=== PATIENT | male | born 1975 | race American Indian/Alaskan Native ===

== ENCOUNTER 2017-03-01 10:41 | Inpatient (IN) | payer SELFPAY ==
[2017-03-01 11:41] LABS: Basophils % (Auto) 0.4 % (0.0-1.8); Eosinophils % (Auto) 0.3 % (0.0-4.3); Hematocrit 43.4 % (35.5-45.6); Hemoglobin 14.4 gm/dl (11.8-15.2); Mean Corpuscular HGB Conc 33 % (32-34); Mean Corpuscular Hemoglobin 30 pg (28-32); Mean Corpuscular Volume 90 fl (84-94); Platelet Count 305 K/mm3 (140-440); Red Blood Count 4.85 M/mm3 (3.65-5.03); White Blood Count 12.8 K/mm3 (4.5-11.0)
[2017-03-01 12:03] LABS: Anion Gap 18 mmol/L; BUN/Creatinine Ratio 8.88; Blood Urea Nitrogen 8 mg/dL (9-20); Calcium 9.2 mg/dL (8.4-10.2); Carbon Dioxide 29 mmol/L (22-30); Chloride 96.7 mmol/L (98-107); Glucose 85 mg/dL (75-100); Potassium 4.3 mmol/L (3.6-5.0); Sodium 139 mmol/L (137-145)
--- NOTE | 2017-03-01 12:05 | XRay Report ---
Chest 2 views: History: Chest pain. Findings: Normal cardiomediastinal silhouette. Trachea is midline. Consolidation right middle lobe. Normal CP angles. Impression: Consolidation right middle lobe.
[2017-03-01] MEDS ORDERED: ROCEPHIN/NS 1 GM/50 ML 1 GM/50 ML BAG IV ONE (20:58)
[2017-03-01] MEDS ORDERED: ZITHROMAX 500 MG in NACL 0.9% 250ML 250 ML IV ONE (21:00)
[2017-03-01] MEDS ORDERED: NACL 0.9% 1000 ML 1,000 ML IV ONE (21:02)
--- NOTE | 2017-03-01 21:04 | Emergency Department Report ---
ED Chest Pain HPI - General Chief Complaint: Chest Pain Stated Complaint: CHEST PAIN/SOB Time Seen by Provider: 03/01/17 20:57 Source: patient Mode of arrival: Ambulatory Limitations: No Limitations - History of Present Illness Initial Comments: 42 year old male with a past medical history of schizophrenia presents to the hospital with complaints of right-sided chest pain 4 days. Pain is constant, sharp, worse with deep inspiration and movement to the right side. Positive cough productive of yellow sputum. No documented fever but positive sweats and chills. Positive dyspnea on exertion. No calf tenderness or edema, recent travel, sick contacts, or hemoptysis. Severity scale (0 -10): 9 - Related Data Home Medications Medication Instructions Recorded Confirmed Last Taken Citalopram Hydrobromide [Celexa] 40 mg PO DAILY 11/12/13 02/04/16 Unknown hydrOXYzine PAMOATE (NF) [Vistaril] 100 mg PO DAILY 11/12/13 02/04/16 Unknown Previous Rx's Medication Instructions Recorded Last Taken Type Ibuprofen [Motrin] 600 mg PO Q8H PRN #60 tablet 06/04/15 Unknown Rx methOCARBAMOL [Robaxin TAB] 500 mg PO BID #10 tab 06/04/15 Unknown Rx traMADol [Ultram] 50 mg PO Q6HR PRN #14 tablet 06/04/15 Unknown Rx Allergies Allergy/AdvReac Type Severity Reaction Status Date / Time No Known Allergies Allergy Unverified 03/01/17 11:00 Heart Score - HEART Score History: Slightly suspicious EKG: Normal Age: < 45 Risk factors: No known risk factors Troponin: < normal limit HEART Score: 0 ED Review of Systems ROS: Stated complaint: CHEST PAIN/SOB Other details as noted in HPI Comment: All other systems reviewed and negative Other: Constitutional: As per HPI Eyes: No eye pain visual changes or discharge ENT: No ear pain or throat pain Neck: Denies pain Respiratory: As per HPI GI: Denies abdominal pain, nausea, vomiting, diarrhea : Denies dysuria, urinary frequency, or urgency Musculoskeletal: Denies back pain Skin: Denies rash, lesions, erythema Neurologic: Denies headache, numbness, weakness Psychiatric: Denies suicidal ideation, hallucinations ED Past Medical Hx - Past Medical History Previous Medical History?: Yes Hx Psychiatric Treatment: Yes ([place] - outpatient) Additional medical history: depression, schizophrenic - Surgical History Past Surgical History?: Yes Additional Surgical History: Right foot surgery - Social History Smoking Status: Never Smoker Substance Use Type: None - Medications Home Medications: Home Medications Medication Instructions Recorded Confirmed Last Taken Type Citalopram Hydrobromide [Celexa] 40 mg PO DAILY 11/12/13 02/04/16 Unknown History hydrOXYzine PAMOATE (NF) [Vistaril] 100 mg PO DAILY 11/12/13 02/04/16 Unknown History Ibuprofen [Motrin] 600 mg PO Q8H PRN #60 tablet 06/04/15 02/04/16 Unknown Rx methOCARBAMOL [Robaxin TAB] 500 mg PO BID #10 tab 06/04/15 02/04/16 Unknown Rx traMADol [Ultram] 50 mg PO Q6HR PRN #14 tablet 06/04/15 02/04/16 Unknown Rx ED Physical Exam - General Limitations: No Limitations - Other Other exam information: General: No limitations, patient is alert in no acute distress Head exam: Atraumatic, normocephalic Eyes exam: Normal appearance, pupils equal reactive to light, extraocular movements intact ENT: Moist mucous membrane, normal oropharynx Neck exam: Normal inspection, full range of motion, no meningismus nontender Respiratory exam: Clear to auscultation bilateral, no wheezes, rales, crackles Cardiovascular: Normal rate and rhythm, tachycardia noted with sitting up in the bed. Right chest wall nontender Abdomen: Soft, nondistended, and nontender, with normal bowel sounds, no rebound, or guarding Extremity: Full range of motion normal inspection no deformity, no calf tenderness or edema Back: Normal Inspection, full range of motion, no tenderness Neurologic: Alert, oriented x3, cranial nerves intact, no motor or sensory deficit Psychiatric: normal affect, normal mood Skin: Warm, dry, intact ED Course Vital Signs 03/01/17 03/01/17 03/01/17 10:55 17:56 18:00 Temperature 99.2 F Pulse Rate 93 H 87 Respiratory 16 14 Rate Blood Pressure 103/66 110/78 Blood Pressure [Right] O2 Sat by Pulse 98 91 Oximetry 03/01/17 03/01/17 03/01/17 18:11 18:18 18:21 Temperature 98.4 F Pulse Rate 79 88 71 Respiratory 24 18 18 Rate Blood Pressure 110/70 115/71 Blood Pressure 122/74 [Right] O2 Sat by Pulse 99 95 100 Oximetry 03/01/17 03/01/17 03/01/17 18:30 18:41 18:51 Temperature Pulse Rate 64 82 85 Respiratory 20 28 H 30 H Rate Blood Pressure 99/57 99/57 104/58 Blood Pressure [Right] O2 Sat by Pulse 100 100 100 Oximetry 03/01/17 03/01/17 03/01/17 19:00 19:11 19:21 Temperature Pulse Rate 76 82 78 Respiratory 27 H 27 H 28 H Rate Blood Pressure 102/56 102/56 130/77 Blood Pressure [Right] O2 Sat by Pulse 99 100 100 Oximetry 03/01/17 03/01/17 03/01/17 19:30 19:41 19:51 Temperature Pulse Rate 80 77 78 Respiratory 28 H 26 H 12 Rate Blood Pressure 109/69 109/69 92/54 Blood Pressure [Right] O2 Sat by Pulse 97 100 99 Oximetry 03/01/17 03/01/17 03/01/17 20:00 20:11 20:21 Temperature Pulse Rate 86 85 97 H Respiratory 33 H 21 21 Rate Blood Pressure 93/60 118/75 Blood Pressure [Right] O2 Sat by Pulse 100 100 99 Oximetry 03/01/17 03/01/17 03/01/17 20:30 20:41 20:43 Temperature Pulse Rate 92 H 93 H 89 Respiratory 32 H 30 H 30 H Rate Blood Pressure 92/52 92/52 92/52 Blood Pressure [Right] O2 Sat by Pulse 98 98 100 Oximetry 03/01/17 03/01/17 03/01/17 20:45 20:47 20:49 Temperature Pulse Rate 89 90 95 H Respiratory 24 23 29 H Rate Blood Pressure 91/54 91/54 91/54 Blood Pressure [Right] O2 Sat by Pulse 99 100 98 Oximetry 03/01/17 20:51 Temperature Pulse Rate 96 H Respiratory 31 H Rate Blood Pressure 91/54 Blood Pressure [Right] O2 Sat by Pulse 98 Oximetry - Reevaluation(s) Reevaluation #1: 03/01/17 21:06 Patient has right middle lobe pneumonia on chest x-ray. Venous pH, blood cultures, urine, urine culture, UDS, and lactic acid added. Rocephin and azithromycin ordered Normal saline Toradol for pain ED Medical Decision Making - Lab Data Result diagrams: 03/01/17 11:21 07/06/17 11:21 Lab Results 03/01/17 03/01/17 03/01/17 Range/Units 11:21 11:21 13:53 WBC 12.8 H (4.5-11.0) K/mm3 RBC 4.85 (3.65-5.03) M/mm3 Hgb 14.4 (11.8-15.2) gm/dl Hct 43.4 (35.5-45.6) % MCV 90 (84-94) fl MCH 30 (28-32) pg MCHC 33 (32-34) % RDW 13.0 L (13.2-15.2) % Plt Count 305 (140-440) K/mm3 Lymph % (Auto) 12.8 L (13.4-35.0) % [place] % (Auto) 13.3 H (0.0-7.3) % Eos % (Auto) 0.3 (0.0-4.3) % Baso % (Auto) 0.4 (0.0-1.8) % Lymph # 1.6 (1.2-5.4) K/mm3 [place] # 1.7 H (0.0-0.8) K/mm3 Eos # 0.0 (0.0-0.4) K/mm3 Baso # 0.0 (0.0-0.1) K/mm3 Seg Neutrophils % 73.2 H (40.0-70.0) % Seg Neutrophils # 9.3 H (1.8-7.7) K/mm3 Sodium 139 (137-145) mmol/L Potassium 4.3 (3.6-5.0) mmol/L Chloride 96.7 L (98-107) mmol/L Carbon Dioxide 29 (22-30) mmol/L Anion Gap 18 mmol/L BUN 8 L (9-20) mg/dL Creatinine 0.9 (0.8-1.5) mg/dL Estimated GFR > 60 ml/min BUN/Creatinine Ratio 8.88 % Glucose 85 (75-100) mg/dL Calcium 9.2 (8.4-10.2) mg/dL Troponin T < 0.010 < 0.010 (0.00-0.029) ng/mL 03/01/17 Range/Units 16:47 WBC (4.5-11.0) K/mm3 RBC (3.65-5.03) M/mm3 Hgb (11.8-15.2) gm/dl Hct (35.5-45.6) % MCV (84-94) fl MCH (28-32) pg MCHC (32-34) % RDW (13.2-15.2) % Plt Count (140-440) K/mm3 Lymph % (Auto) (13.4-35.0) % [place] % (Auto) (0.0-7.3) % Eos % (Auto) (0.0-4.3) % Baso % (Auto) (0.0-1.8) % Lymph # (1.2-5.4) K/mm3 [place] # (0.0-0.8) K/mm3 Eos # (0.0-0.4) K/mm3 Baso # (0.0-0.1) K/mm3 Seg Neutrophils % (40.0-70.0) % Seg Neutrophils # (1.8-7.7) K/mm3 Sodium (137-145) mmol/L Potassium (3.6-5.0) mmol/L Chloride (98-107) mmol/L Carbon Dioxide (22-30) mmol/L Anion Gap mmol/L BUN (9-20) mg/dL Creatinine (0.8-1.5) mg/dL Estimated GFR ml/min BUN/Creatinine Ratio % Glucose (75-100) mg/dL Calcium (8.4-10.2) mg/dL Troponin T < 0.010 (0.00-0.029) ng/mL - EKG Data -: EKG Interpreted by Me (sinus rhythm rate 85 LVH early repo) - EKG Data When compared to previous EKG there are: previous EKG unavailable - Radiology Data Radiology results: report reviewed (chest x-ray: Right middle lobe infiltrate) - Medical Decision Making Plan to the patient to the hospital for treatment of pneumonia. Vital signs as documented show intermittent tachypnea. Patient also has tachycardia with postural changes. Patient also having borderline hypotension different requires admission for pneumonia treatment. - Differential Diagnosis pneumonia, PE, bronchitis, pleurisy, costochondritis, atypical chest pain Critical Care Time: No Critical care attestation.: If time is entered above; I have spent that time in minutes in the direct care of this critically ill patient, excluding procedure time. ED Disposition Clinical Impression: Right middle lobe pneumonia Disposition: [id number] OP ADMIT IP TO THIS HOSP Is pt being admited?: Yes Condition: Stable Time of Disposition: 21:03
[2017-03-01] MEDS ORDERED: TORADOL IV ONE (21:06)
[2017-03-01 21:08] LABS: Urine Drugs of Abuse Note Disclamer
[2017-03-01 21:48] LABS: Bilirubin,Urine NEG (Negative); Blood,Urine NEG (Negative); Ketones,Urine 20 mg/dL (Negative); Leukocyte Esterase,Urine NEG (Negative); Mucus,Urine 2+ /HPF; Nitrite,Urine NEG (Negative); WBC,Urine < 1.0 /HPF (0.0-6.0)
[2017-03-01] MEDS ORDERED: ZOFRAN IV PRN (22:41)
[2017-03-01] MEDS ORDERED: MILK OF MAGNESIA PO PRN (22:41)
[2017-03-01] MEDS ORDERED: PROVENTIL IH PRN (22:41)
[2017-03-01] MEDS ORDERED: DULCOLAX PR PRN (22:41)
--- NOTE | 2017-03-01 22:45 | History and Physical Report ---
History of Present Illness Date of examination: 03/01/17 History of present illness: 42-year-old man with a history of schizophrenia, depression comes emergency room with complaints of chest pain in the right chest which started on Sunday which she described as a hurting pain, worse with cough. Cough is productive of yellow phlegm, admits to fever and chills, shortness of breath Patient denies chest pain, palpitation, abdominal pain, hematochezia, dysuria, frequency, focal weakness, dysarthria, fever chills, polydipsia polyuria, hot or cold intolerance, easy bruisability, or rash or bleeding from mucosal membrane, rhinorrhea, epistaxis, earache, tinnitus, blurry vision, eye discharge , anxiety, depression. Other review of systems negative PAST SURGICAL HISTORY: Right foot surgery SOCIAL HISTORY: Admits to alcohol, tobacco, cocaine, marijuana use FAMILY HISTORY: Hypertension Medications and Allergies Allergies Allergy/AdvReac Type Severity Reaction Status Date / Time No Known Allergies Allergy Unverified 03/01/17 11:00 Exam - Physical Exam Narrative exam: Gen. appearance: Patient lying in bed, no apparent distress HEENT: Normocephalic, atraumatic, pupils equally round and reactive to light, extraocular movement intact, and no sclericterus,. No JVD or thyromegaly or nodule,neck supple, no carotid bruit ,mucous membranes moist, no exudate or erythema Heart: S1, S2, regular rate and rhythm Lungs: Right lung crackle, breathing comfortable Abdomen: Positive bowel sounds, nontender, nondistended, no organomegaly Extremity: No edema, cyanosis, clubbing Skin: No rash, nodules, warm, dry Neuro: Oriented 3, cranial nerves II-12 intact, speech is fluent, motor and sensory intact - Constitutional Vitals: Temp Pulse Resp BP Pulse Ox 98.4 F 86 22 108/58 100 03/01/17 18:18 03/01/17 22:05 03/01/17 22:05 03/01/17 22:05 03/01/17 22:05 Results - Labs CBC & Chem 7: 03/01/17 11:21 03/01/17 11:21 Labs: Abnormal lab results 03/01/17 03/01/17 03/01/17 Range/Units 11:21 11:21 21:13 WBC 12.8 H (4.5-11.0) K/mm3 RDW 13.0 L (13.2-15.2) % Lymph % (Auto) 12.8 L (13.4-35.0) % [place] % (Auto) 13.3 H (0.0-7.3) % [place] # 1.7 H (0.0-0.8) K/mm3 Seg Neutrophils % 73.2 H (40.0-70.0) % Seg Neutrophils # 9.3 H (1.8-7.7) K/mm3 Chloride 96.7 L (98-107) mmol/L BUN 8 L (9-20) mg/dL Lactic Acid 3.50 H* (0.7-2.0) mmol/L - Imaging and Cardiology EKG: image reviewed Chest x-ray: image reviewed Assessment and Plan Sepsis Community acquired pneumonia Substance abuse Schizophrenia Depression Admit to medicine Start IV antibiotic, follow blood culture, sputum culture Start dvt prophalaxis, continue outpatient medications
[2017-03-02 07:40] LABS: Basophils % (Auto) 0.3 % (0.0-1.8); Eosinophils % (Auto) 0.4 % (0.0-4.3); Hematocrit 40.1 % (35.5-45.6); Hemoglobin 13.1 gm/dl (11.8-15.2); Mean Corpuscular HGB Conc 33 % (32-34); Mean Corpuscular Hemoglobin 29 pg (28-32); Mean Corpuscular Volume 90 fl (84-94); Platelet Count 290 K/mm3 (140-440); Red Blood Count 4.45 M/mm3 (3.65-5.03); Red Cell Distribution Width 12.9 % (13.2-15.2); White Blood Count 9.7 K/mm3 (4.5-11.0)
[2017-03-02 07:57] LABS: Anion Gap 18 mmol/L; Blood Urea Nitrogen 10 mg/dL (9-20); Calcium 8.8 mg/dL (8.4-10.2); Carbon Dioxide 26 mmol/L (22-30); Chloride 101.7 mmol/L (98-107); Glucose 99 mg/dL (75-100); Potassium 4.3 mmol/L (3.6-5.0); Sodium 141 mmol/L (137-145)
--- NOTE | 2017-03-02 07:58 | Admit Criteria Form ---
Admission Criteria Documentation: GENERAL ADMISSION CRITERIA (Place 'X' for any and all applicable criteria): Admission is indicated for ANY ONE of the following: [ X]I. Hemodynamic instability as indicated by ANY ONE of the following(1)(2 )(3)(4)(5): [X ]a) Vital sign abnormality not readily corrected by appropriate treatment within 12 to 24 hours indicated by ANY ONE of the following: [X ]i) Hypotension [ ]ii) Symptomatic Tachycardia unresponsive to treatment (eg , analgesia, fluids, sedation as indicated) [ ]iii) Orthostatic vital sign changes unresponsive to treatment (eg, fluids) [ X]b) Vital sign abnormality that is severe indicated by ANY ONE of the following: [ X]i) Inadequate perfusion indicated by ANY ONE of the following: [ X]1) Lactic acidosis (greater than 2 mmol/L) [ ]2) New abnormal capillary refill (greater than 3 seconds) [ ]3) Other metabolic acidosis (arterial pH less than 7.35) not otherwise explained [ ]4) Reduced urine output [ ]5) Altered mental status [ ]6) Myocardial Ischemia [ ]v) Mean arterial pressure[A] less than 60 mm Hg [ ]vi) Mean arterial pressure[A] less than 70 mm Hg after 30 minutes of appropriate treatment (eg, fluid resuscitation) [ ]vii) IV inotropic or vasopressor medication required to maintain adequate blood pressure or perfusion [ ]viii) Sustained heart rate greater than 120 beats per minute in adult or child 6 years or older[B]] [ ]II. Hypertension requiring inpatient treatment as indicated by ANY ONE of the following(6)(7)(8): [ ]a) SBP greater than 220 mm Hg or DBP greater than 120 mm Hg despite treatment [ ]b) SBP greater than 140 mm Hg or DBP greater than 100 mm Hg with evidence of acute end organ damage as indicated by ANY ONE of the following: [ ]i) Encephalopathy [ ]ii) Acute renal failure as indicated by new onset of ANY ONE of the following(9)(10)(11)(12)(13): [ ]1) A 3-fold rise in serum creatinine from baseline [ ]2) Serum creatinine greater than 4 mg/dL ( 354 micromoles/L) with acute rise greater than 0.5 mg/dL (44.2 micromoles/L) [ ]3) Reduction of more than 75% in estimated glomerular filtration rate from baseline [ ]4) Estimated glomerular filtration rate less than 35 mL/min/1.73m2 (0.59 mL/sec/1.73m2) in child up to 18 years of age [ ]5) Cessation of urine output indicated by ALL of the following: [ ]A. Adequate volume status [ ]B. Inadequate urine output as indicated by ANY ONE of the following: [ ]a. Urine output less than 0.3 mL/kg/hr for 24 hours [ ]b. Anuria (urine output less than 0.1 mL/kg/hr) for 12 hours [ ]iii) Aortic dissection [ ]iv) Myocardial ischemia [ ]v) Left ventricular heart failure [ ]vi) Retinal hemorrhage [ ]vii) Other significant finding [ ]c) Hypertension in child requiring inpatient treatment as indicated by ALL of the following(14)(15)(16): [ ]i) Outpatient treatment not effective, not available, or not appropriate [ ]ii) SBP or DBP greater than 95th percentile for age [ ]iii) Evidence of acute end organ damage as indicated by ANY ONE of the following: [ ]1) Altered mental status [ ]2) Acute renal failure as indicated by new onset of ANY ONE of the following(9)(10)(11)(12)(13): [ ]A. A 3-fold rise in serum creatinine from baseline [ ]B. Serum creatinine greater than 4 mg/dL (354 micromoles/L) with acute rise greater than 0.5 mg/dL (44.2 micromoles/L) [ ]C. Reduction of more than 75% in estimated glomerular filtration rate from baseline [ ]D. Estimated glomerular filtration rate less than 35 mL/min/1.73m2 (0.59 mL/sec/1.73m2)in child up to 18 years of age [ ]E. Cessation of urine output indicated by ALL of the following: [ ]a. Adequate volume status [ ]b. Inadequate urine output as indicated by ANY ONE of the following: [ ]1) Urine output less than 0.3 mL/kg/hr for 24 hours [ ]2) Anuria (urine output less than 0.1 mL/kg/hr) for 12 hours [ ]3) Severe headache [ ]4) Visual disturbance [ ]5) Retinal hemorrhage [ ]6) Other significant finding [ ]III. Acute cardiac or peripheral ischemia as indicated by ANY ONE of the following: [ ]a) Acute coronary syndrome(17)(18) [ ]b) Acute peripheral ischemia (eg, pulseless, cool, mottled, or cyanotic extremity)(19) [ ]IV. Cardiac arrhythmias or findings of immediate concern indicated by ANY ONE of the following(20)(21): [ ]a) Heart rhythms that are inherently dangerous or unstable indicated by ANY ONE of the following(22)(23)(24): [ ]i) Resuscitated ventricular fibrillation or cardiac arrest [ ]ii) Ventricular escape rhythm [ ]iii) Sustained ventricular tachycardia (30 seconds or more of ventricular rhythm at greater than 100 beats per minute) [ ]iv) Nonsustained ventricular tachycardia and ANY ONE of the following: [ ]1) Suspected cardiac ischemia as cause or consequence of ventricular tachycardia [ ]2) In setting of acute myocarditis [ ]b) Unstable cardiac conduction defects indicated by ANY ONE of the following(24)(25)(26): [ ]i) Type II second-degree atrioventricular block [ ]ii) Third-degree atrioventricular block [ ]iii) New-onset left bundle branch block with suspected myocardial ischemia [ ]c) Any heart rhythm and ANY ONE of the following(22)(23)(27)(28)( 29): [ ] i) Continuous long-term ECG monitoring needed (eg, initiation of drug requiring monitoring for more than 24 hours) [ ] ii) Patient has automatic implanted cardioverter defibrillator that is repeatedly firing, malfunctioning, or in need of immediate adjustment of settings beyond the scope of ambulatory or observation care. [ ]d) Heart rhythms of concern due to ANY ONE of the following: [ ]i) Hypotension [ ]ii) Respiratory distress [ ]iii) Association with other significant symptoms (eg, bradycardia with syncope or ongoing dizziness, supraventricular tachycardia with chest pain) (27)(28) (30) [ ] V. Severe heart failure as indicated by ANY ONE of the following ( 31)(32): [ ]a) Respiratory distress [ ]b) Hypotension [ ]c) Anasarca (refractory to outpatient therapy) [ ]d) Cardiac arrhythmias of immediate concern [ ]e) Myocardial ischemia [ ]. Respiratory abnormalities, including ANY ONE of the following(33)(34) (35)(36): [ ]a) Respiratory rate greater than 30 breaths per minute unresponsive to treatment [A] [ ]b) New saturation of arterial oxygen less than 90% [ ]c) New partial pressure of carbon dioxide greater than 44 mm Hg ( 5.9 kPa) [ ]d) Supplemental oxygen or respiratory treatments needed that are new or not performable at other levels of care [ ]e) New-onset cyanosis [ ]f) Inability to protect airway [ ]g) Chronic lung disease with severe deterioration (not responsive to emergency and observation care treatment as appropriate) as indicated by ANY ONE of the following(34)(36 ): [ ]i) SaO2 5% below baseline in patient with chronic hypoxemia [ ]ii) New requirement for supplemental oxygen to keep SaO2 at baseline or acceptable level [ ]iii) Required supplemental oxygen performable only in acute inpatient setting [ ]iv) Severe airflow or ventilation abnormalities [ ]v) Previously mobile patient unable to walk between rooms [ ]vi Inability to eat or sleep due to dyspnea [ ]vii) Rapid rate of exacerbation onset [ ]viii) Altered mental status ]VII. Severe airflow or ventilation abnormalities (not responsive to emergency and observation care treatment as appropriate) as indicated by ANY ONE of the following(33)(34)(35)(37): [ ]a) PCO2 greater than 42 mm Hg (5.6 kPa) and pH less than 7.35 (new ) [ ]b) Documented PCO2 increased more than 5 mm Hg (0.7 kPa) from disease baseline [ ]c) Airflow measurements [B] less than 60% of previous best or predicted (eg, peak expiratory flow rate less than 300 L/minute) despite intensive emergent treatment [C] [ ]d) Required respiratory treatments that are performable only in acute inpatient setting [ ]VIII. Impending or actual respiratory arrest ( Also use Respiratory Failure GRG for severe respiratory disease and long-term mechanical ventilation patients) [ ]IX. Neurologic abnormalities, including ANY ONE of the following: [ ]a) New findings that suggest ANY ONE of the following: [ ]i) DOUBLE BOTTOM DRIVER infection(38) [ ]ii) Cerebral bleeding, ischemia, or vasospasm(39)(40) [ ]iii) Increased intracranial pressure, hydrocephalus, or cerebral edema(41)(42)(43) [ ]iv) Spinal cord injury(44) [ ]b) Uncontrolled seizures(45) [ ]c) New-onset coma (eg, Ward coma scale score less than 9) or unexplained abnormal mental status (eg, Ward coma scale score less than 14) [D](41)(46)(47) [ ]X. New-onset severe neurologic findings requiring inpatient care; examples include(42)(48)(49): [ ]a) Papilledema [ ]b) Cerebral edema [ ]c) Mass effect on CT scan [ ]XI. Suspected acute intra-abdominal process with peritoneal signs, abdominal mass, or similar findings (50)(51)(52) [ ]XII. Severe physiologic disorder remaining after emergency or observation level care (as appropriate) as indicated by ANY ONE of the following (53): [ ]a) Significant dehydration [ ]b) Diabetic ketoacidosis [ ]c) Hyperglycemic hyperosmolar state (eg, osmolality greater than 320 mOsm/kg (mmol/kg) [ ]d) Hypoglycemia [ ]e) Other (new) acid-base disorder with pH less than 7.35 or greater than 7.5(54) [ ]f) Thyroid storm (55) [ ]g) Myxedema coma (55) [ ]XIII. Abdominal abnormalities with ANY ONE of the following(56)(57): [ ]a) Absent bowel sounds with complete ileus [ ]b) Signs of intestinal obstruction or peritonitis [E] [ ]c) Nausea and vomiting that cannot be controlled with outpatient or observation care [ ]XIV. Acute renal failure as indicated by new onset of ANY ONE of the following(9)(10)(11)(12)(13): [ ]a) A 3-fold rise in serum creatinine from baseline [ ]b) Serum creatinine greater than 4 mg/dL (354 micromoles/L) with acute rise greater than 0.5 mg/dL (44.2 micromoles/L) [ ]c) Reduction of more than 75% in estimated glomerular filtration rate from baseline [ ]d) Estimated glomerular filtration rate less than 35 mL/min/ 1.73m2 (0.59 mL/sec/1.73m2) in child up to 18 years of age [ ]e) Cessation of urine output indicated by ALL of the following: [ ]i) Adequate volume status [ ]ii) Inadequate urine output as indicated by ANY ONE of the following: [ ]1) Urine output less than 0.3 mL/kg/hr for 24 hours [ ]2) Anuria (urine output less than 0.1 mL/kg/hr) for 12 hours [ ]XV. Significant uremic complications as indicated by ANY ONE of the following(58)(59)(60): [ ]a) Outpatient therapy is ineffective or not feasible for ANY ONE of the following: [ ]i) Severe heart failure [ ]ii) Severehypertension [ ]iii) Pleural effusion [ ]iv) Pericarditis or pericardial effusion [ ]b) Cardiac arrhythmias of immediate concern [ ]c) Intractable nausea or vomiting [ ]d) Recurrent seizures [ ]e) Encephalopathy [ ]f) Bleeding abnormalities (eg, platelet dysfunction) with active (eg, gastrointestinal) bleeding [ ]g) Dialysis indicated before long-term access or ambulatory arrangements can be made [ ]h) Significant metabolic or electrolyte abnormalities (eg, severe acidosis or hyperkalemia) [ ]XVI. High fever or other high-risk infection situation as indicated by ANY ONE of the following(61)(62)(63)(64): [ ]a) Outpatient and observation care antimicrobial treatment unavailable, not effective, or not appropriate [ ]b) Documented bacteremia [ ]c) Temperature greater than 40.5 degrees C (104.9 degrees F) ( oral) [ ]d) Temperature greater than 39.5 degrees C (103.1 degrees F) ( oral) or less than 36 degrees C (96.8 degrees F) (rectal) that does not respond to e treatment and observation care [ ] XVII. Temperature less than 95 degrees F (35 degrees C)(rectal)(65) [ ] XVIII. Severe nutritional abnormalities as indicated by ALL of the following (66)(67): [ ]a) Inability to tolerate or establish sufficient oral or other enteral nutrition in outpatient setting [ ]b) Parenteral nutrition regimen need that must be implemented on inpatient basis [ ] XIX. Severe electrolyte abnormalities indicated by ALL of the following(68) (69)(70): [ ]a) Electrolytes and associated findings are not as expected for patient baseline or acceptable treatment effects. [ ]b) Severe abnormalities indicated by ANY ONE of the following: [ ]i) Sodium less than 130 mEq/L (mmol/L) (new) [ ]ii)Sodium less than 135 mEq/L (mmol/L) with ANY ONE of the following: [ ]1) Uncorrectable (to near normal or chronic baseline) after trial of outpatient and emergency treatment [ ]2) Altered mental status [ ]3) Seizures [ ]4) Severe medical etiology requiring inpatient management (eg, heart failure, hypovolemia) [ ]iii) Sodium greater than 155 mEq/L (mmol/L) [ ]iv) Sodium greater than 150 mEq/L (mmol/L) with ANY ONE of the following: [ ]1) Uncorrectable (to near normal or chronic baseline) with outpatient and emergency treatment [ ]2) Altered mental status [ ]3) Seizures [ ]4) Severe medical etiology (eg, hypovolemia, diabetes insipidus) [ ]v) Potassium less than 2.5 mEq/L (mmol/L) despite outpatient and emergency treatment [ ]vi) Potassium less than 3 mEq/L (mmol/L) with ANY ONE of the following: [ ]1) Weakness [ ]2) Cardiac abnormality (eg, arrhythmia, conduction disturbance) [ ]3) Cardiac ischemia [ ]4) Ileus [ ]5) Ongoing medical cause requiring inpatient management (eg, acute renal wasting or SIADH) [ ]6) Other severe symptoms [ ]vii) Potassium greater than 6.5 mEq/L (mmol/L) [ ]viii) Potassium greater than 5 mEq/L (mmol/L) with ANY ONE of the following: [ ]1) Uncorrectable (to near normal or chronic baseline) with outpatient and emergency treatment [ ]2) Severe ECG findings [F] [ ]3) Acute worsening of renal failure (creatinine greater than 2.5 mg/dL (221 micromoles/L) or significant elevation for age and size) [ ]4) Severe weakness [ ]5) Severe medical etiology (eg, hemolysis, infection, drug overdose) [ ]ix) Calcium less than 7 mg/dL (1.75 mmol/L) despite outpatient and emergency treatment (72) [ ]x) Calcium less than 8 mg/dL (2 mmol/L) with significant symptoms or findings; examples include(72): [ ]1) Altered mental status [ ]2) Muscle spasms [ ]3) Seizures [ ]4) Breathing difficulty [ ]5) Cardiac abnormality (eg, arrhythmia or conduction disturbance) [ ]xi) Calcium greater than 14 mg/dL (3.5 mmol/L)(72) [ ]xii) Calcium greater than 12 mg/dL (3 mmol/L) with ANY ONE of the following(72): [ ]1) Uncorrectable (to near normal or chronic baseline) with outpatient and emergency treatment [ ]2) Significant dehydration or hypovolemia as indicated by ALL of the following(70)(73)(74): [ ]A. Not resolved with initial treatments [ ]B. Clinically significant dehydration as indicated by ANY ONE of the following: [ ]a. Vomiting refractory to outpatient treatment (ie, precluding oral rehydration) [ ]b. Inability to drink [ ]c. Hypernatremia or other electrolyte abnormality unable to be corrected with outpatient and emergency treatment [ ]d. Failure to remain hydrated with outpatient therapy [ ]e. Reduced urine output [ ]f. Hypotension [ ]g. Serious cause for dehydration requiring acute hospitalization (eg, bowel obstruction, increased intracranial pressure, infectious cause) [ ]h. Child with ANY ONE of the following(75): [ ]1) Severe abdominal tenderness [ ]2) Adequate care not available at home [ ]3) Severe dehydration ( greater than 9% loss of body weight) [ ]4) Significant symptoms or findings; examples include: [ ]A. Altered mental status [ ]B. Cardiac abnormality (eg, arrhythmia, conduction disturbance) [ ]C. Malignant etiology requiring inpatient treatment [ ]xiii) Phosphorus less than 1 mg/dL (0.32 mmol/L) [ ]xiv) Phosphorus less than 1.5 mg/dL (0.48 mmol/L) with ANY ONE of the following: [ ]1) Patient unresponsive to outpatient and emergency treatment [ ]2) Significant symptoms or findings; examples include: [ ]A. Weakness [ ]B. Altered mental status [ ]C. Breathing difficulty [ ]D. Seizures [ ]E. Rhabdomyolysis [ ]xv) Phosphorus greater than 10 mg/dL (3.2 mmol/L) [ ]xvi) Phosphorus greater than 4.5 mg/dL (1.45 mmol/L) (new) with ANY ONE of the following: [ ]1) Severe medical etiology (eg, crush injury, acute renal failure) [ ]2) Associated hypocalcemia with significant findings; examples include: [ ]A. Neurologic symptoms [ ]B. Altered mental status [ ]C. Muscle spasms [ ]D. Seizures [ ]E. Breathing difficulty [ ]F. Cardiac abnormality (eg, arrhythmia, conduction disturbance) [ ]xvii) Magnesium less than 1 mg/dL (0.41 mmol/L) [ ]xviii) Magnesium less than 1.5 mg/dL (0.62 mmol/L) with ANY ONE of the following: [ ]1) Patient unresponsive to outpatient and emergency treatment [ ]2) Associated hypocalcemia with significant findings; examples include: [ ]A. Altered mental status [ ]B. Muscle spasms [ ]C. Seizures [ ]D. Breathing difficulty [ ]E. Cardiac abnormality (eg, arrhythmia , conduction disturbance) [ ]3) Associated hypokalemia (potassium less than 3 mEq/L (mmol/L)) with risk of arrhythmia [ ]xix) Magnesium greater than 4 mEq/L (2 mmol/L) [ ]xx) Magnesium greater than 2.5 mEq/L (1.25 mmol/L) with significant symptoms or findings; examples include: [ ]1) Weakness [ ]2) Altered mental status [ ]3) Cardiac abnormality (eg, arrhythmia, conduction disturbance) [ ]4) Breathing difficulty [ ]5) Severe medical etiology (eg, renal failure, hypovolemia) [ ]xxi) Uric acid greater than 20 mg/dL (1190 micromoles/L)(76) [ ]xxii) Uric acid greater than 8 mg/dL (476 micromoles/L) with significant symptoms or findings of tumor lysis syndrome; examples include(76): [ ]1) Creatinine greater than 1.5 times upper limit of normal [ ]2) Cardiac abnormality (eg, arrhythmia, conduction disturbance) [ ]3) Seizure [ ]XX. Acute blood loss causing significant abnormality as indicated by ANY ONE of the following(77)(78): [ ]a) Hemoglobin less than 10 g/dL (100 g/L) (not baseline) [ ]b) Hematocrit less than 30% (0.30) (not baseline) [ ]c) Repeat hematocrit decreased more than 2% (0.02) [ ]d) Uncontrolled bleeding [ ]XXI. Severe anemia indicated by ANY ONE of the following(78)(79): [ ]a) Altered mental status [ ]b) Chest pain [ ]c) Exertional dyspnea [ ]d) Syncope [ ]e) Other findings suggesting inadequate perfusion [ ]f) Treatment with transfusion or volume replacement is ineffective at resolving ANY ONE of the following [G]: [ ]i) Tachycardia for age [ ]ii) Orthostatic vital sign changes as indicated by ANY ONE of the following(80): [ ]1) Fall in SBP of 20 mm Hg or more 1 to 3 minutes after patient sits or stands from recumbent position [ ]2) Fall in DBP of 10 mm Hg or more 1 to 3 minutes after patient sits or stands from recumbent position [ ]XXII. High-risk low platelet count as indicated by ANY ONE of the following( 81)(82): [ ]a) Severe or life-threatening bleeding (eg, intracranial, major gastrointestinal, or extensive mucosal bleeding), with any reduced platelet count [ ]b) Platelet count less than 20,000/mm3 (20 x109/L) with any active bleeding [ ]c) Platelet count less than 10,000/mm3 (10 x109/L) with minor purpura or petechiae [ ]d) Platelet count less than 5000/mm3 (5 x109/L) [ ]e) Low platelet count with hemolytic anemia [ ]XXIII. Disseminated intravascular coagulation(77)(83) [ ]XXIV. Severe adverse drug or systemic toxin reaction requiring inpatient treatment; examples include(84)(85): [ ]a) Serotonin syndrome(86) [ ]b) Neuroleptic malignant syndrome(86) [ ]c) Cholinergic syndrome with severe symptoms (eg, bronchorrhea, weakness, mental status changes, seizures) [ ]d) Sympathetic syndrome with severe symptoms (eg, seizures, mental status changes, cardiac dysrhythmias) [ ]e) Anticholinergic syndrome [ ]XXV. Severe pain requiring acute inpatient management as indicated by ALL of the following (87)(88)(89): [ ]a) Continuous or frequent (eg, every 2 to 4 hours) parenteral analgesics required [H] [ ]b) Rapid improvement expected from treatment or acute intervention (eg, surgery, anesthesia procedure) [ ]XXVI.Severe behavioral health issues judged unmanageable at a lower level of care (eg, residential) in a patient who is ANY ONE of the following(91) [ ]a) Acutely suicidal [ ]b) A danger to self (eg, self-mutilating or suicidal behavior) [ ]c) A danger to others (eg, assaultive or homicidal behavior) [ ]d) Incapacitated because of grave disability (eg, inability to provide for self at lower level of care) (92) [ ]XXVII. Inpatient monitoring needed; examples include(1)(3)(87)(93)(94)(95)(96 ): [ ]a) Vital signs, neurologic signs, or vascular checks more frequently than every 4 hours [ ]b) Cardiac or respiratory monitoring beyond the scope (eg, over 24 hours) of observation care [ ]c) Pulmonary artery catheter monitoring [ ]d) Suspected compartment syndrome(97) (98) [ ]e) Cerebral bleeding, hydrocephalus, or vasospasm monitoring [ ]f) Increased intracranial pressure or cerebral edema monitoring [ ]g) monitoring [ ]XXVIII. Treatment requiring inpatient care; examples include: [ ]a) IV fluid to replace significant ongoing losses (greater than 3 L/m2 per day)(53) [ ]b) High concentration oxygen (greater than 40%)(33)(99)(100) [ ]c) Frequent respiratory therapy (more frequently than every 4 hours) to maintain airflow rates greater than 60% of baseline(33)(99)(100) [ ]d) Epidural analgesia(87) [ ]e) IV anticoagulation, vasoactive, or antiarrhythmic medication(19 )(23) [ ]f) Acute thrombolytics (generally require 24 hours of observation )(101)(102) [ ]XXIX. Emergency procedures needed; examples include: [ ]a) Emergency inpatient surgery [ ]b) Temporary pacemaker placement(103) [ ]c) Chest tube placement with active evacuation (eg, suction, drainage)(104) [ ]d) Emergent cardioversion(105) [ ]e) Emergent cardiac or vascular procedures (eg, cardiac catheterization, angioplasty) (17)(18) [ ]f) Emergent dialysis access placement and institution(10)(106) [ ]g) Emergent pericardiocentesis(107) [ ]h) Emergent plasmapheresis or leukapheresis(83) [ ]i) Emergent tracheostomy The original [employer] content created by [employer] has been revised. The portions of the content which have been revised are identified through the use of italic text or in bold, and [employer] [email or web address] [email or web address] has neither reviewed nor approved the modified material. All other unmodified content is copyright [employer]. Please see references footnoted in the original [employer] edition 2016 Admission Criteria Met: Yes
[2017-03-02] MEDS: LEVAQUIN 750MG/150ML 750 MG/150 ML BAG IV SCH (09:42)
[2017-03-02] MEDS: TYLENOL PO PRN ×2 (09:43→15:29)
[2017-03-02] MEDS: LOVENOX SUB-Q SCH (09:44)
[2017-03-02] MEDS ORDERED: LOVENOX SUB-Q SCH (10:00)
[2017-03-02] MEDS ORDERED: ULTRAM PO PRN (15:08)
--- NOTE | 2017-03-02 16:00 | Progress Note ---
Assessment and Plan Assessment and plan: --Community-acquired pneumonia IV antibiotics, IV fluids, follow blood and sputum cultures, supportive care --Sepsis secondary to pneumonia Closely monitor for the cultures --History of schizophrenia; Resume appropriate home medications, well compensated, consider psych evaluation if needed --History of depression Denies suicidal thoughts IDEATION --Polysubstance abuse On sling done patient strongly advised to quit recreational drug use Verbalized understanding --DVT prophylaxis with Lovenox closely monitor the patient and adjust the management as needed History Interval history: Patient seen and evaluated medical records reviewed Spiked fever of 102 this morning, admitted with left lower lobe pneumonia on IV antibiotics Patient complains of 2-3 loose stools since morning Alert awake oriented 3 not in acute distress Hospitalist Physical - Constitutional Vitals: Temp Pulse Resp BP Pulse Ox 102.9 F H 89 20 116/61 99 03/02/17 07:45 03/02/17 07:45 03/02/17 07:45 03/02/17 07:45 03/02/17 09:20 General appearance: Present: no acute distress, well-nourished - EENT Eyes: Present: PERRL, EOM intact - Neck Neck: Present: supple, normal ROM - Respiratory Respiratory effort: normal Respiratory: left: diminished, rhonchi, negative: rales - Cardiovascular Rhythm: regular Heart Sounds: Present: S1 & S2 - Extremities Extremities: no ischemia, pulses intact, pulses symmetrical - Abdominal General gastrointestinal: soft, non-tender, non-distended, normal bowel sounds - Integumentary Integumentary: Present: clear, warm - Psychiatric Psychiatric: appropriate mood/affect, cooperative - Neurologic Neurologic: CNII-XII intact, moves all extremities Results - Labs CBC & Chem 7: 03/02/17 06:45 03/02/17 06:45 Labs: Laboratory Last Values WBC 9.7 K/mm3 (4.5-11.0) 03/02/17 06:45 RBC 4.45 M/mm3 (3.65-5.03) 03/02/17 06:45 Hgb 13.1 gm/dl (11.8-15.2) 03/02/17 06:45 Hct 40.1 % (35.5-45.6) 03/02/17 06:45 MCV 90 fl (84-94) 03/02/17 06:45 MCH 29 pg (28-32) 03/02/17 06:45 MCHC 33 % (32-34) 03/02/17 06:45 RDW 12.9 % (13.2-15.2) L 03/02/17 06:45 Plt Count 290 K/mm3 (140-440) 03/02/17 06:45 Lymph % (Auto) 14.2 % (13.4-35.0) 03/02/17 06:45 Day % (Auto) 11.3 % (0.0-7.3) H 03/02/17 06:45 Eos % (Auto) 0.4 % (0.0-4.3) 03/02/17 06:45 Baso % (Auto) 0.3 % (0.0-1.8) 03/02/17 06:45 Lymph # 1.4 K/mm3 (1.2-5.4) 03/02/17 06:45 Day # 1.1 K/mm3 (0.0-0.8) H 03/02/17 06:45 Eos # 0.0 K/mm3 (0.0-0.4) 03/02/17 06:45 Baso # 0.0 K/mm3 (0.0-0.1) 03/02/17 06:45 Seg Neutrophils % 73.8 % (40.0-70.0) H 03/02/17 06:45 Seg Neutrophils # 7.1 K/mm3 (1.8-7.7) 03/02/17 06:45 VBG pH 7.357 (7.320-7.420) 03/01/17 21:13 Sodium 141 mmol/L (137-145) 03/02/17 06:45 Potassium 4.3 mmol/L (3.6-5.0) 03/02/17 06:45 Chloride 101.7 mmol/L (98-107) 03/02/17 06:45 Carbon Dioxide 26 mmol/L (22-30) 03/02/17 06:45 Anion Gap 18 mmol/L 03/02/17 06:45 BUN 10 mg/dL (9-20) 03/02/17 06:45 Creatinine 1.0 mg/dL (0.8-1.5) 03/02/17 06:45 Estimated GFR > 60 ml/min 03/02/17 06:45 BUN/Creatinine Ratio 10.00 % 03/02/17 06:45 Glucose 99 mg/dL (75-100) 03/02/17 06:45 Lactic Acid 3.50 mmol/L (0.7-2.0) H* 03/01/17 21:13 Calcium 8.8 mg/dL (8.4-10.2) 03/02/17 06:45 Troponin T < 0.010 ng/mL (0.00-0.029) 03/01/17 16:47 Urine Color Yellow (Yellow) 03/01/17 20:30 Urine Turbidity Clear (Clear) 03/01/17 20:30 Urine pH 6.0 (5.0-7.0) 03/01/17 20:30 Ur Specific Thicket 1.019 (1.003-1.030) 03/01/17 20:30 Urine Protein 100 mg/dl mg/dL (Negative) 03/01/17 20:30 Urine Glucose (UA) Neg mg/dL (Negative) 03/01/17 20:30 Urine Ketones 20 mg/dL (Negative) 03/01/17 20:30 Urine Blood Neg (Negative) 03/01/17 20:30 Urine Nitrite Neg (Negative) 03/01/17 20:30 Urine Bilirubin Neg (Negative) 03/01/17 20:30 Urine Urobilinogen 2.0 mg/dL (<2.0) 03/01/17 20:30 Ur Leukocyte Esterase Neg (Negative) 03/01/17 20:30 Urine WBC (Auto) < 1.0 /HPF (0.0-6.0) 03/01/17 20:30 Urine RBC (Auto) 1.0 /HPF (0.0-6.0) 03/01/17 20:30 Urine Mucus 2+ /HPF 03/01/17 20:30 Urine Opiates Screen Presumptive negative 03/01/17 20:30 Urine Methadone Screen Presumptive negative 03/01/17 20:30 Ur Barbiturates Screen Presumptive negative 03/01/17 20:30 Ur Phencyclidine Scrn Presumptive negative 03/01/17 20:30 Ur Amphetamines Screen Presumptive negative 03/01/17 20:30 U Benzodiazepines Scrn Presumptive negative 03/01/17 20:30 Urine Cocaine Screen Presumptive positive 03/01/17 20:30 U Marijuana (THC) Screen Presumptive positive 03/01/17 20:30 Drugs of Abuse Note Disclamer 03/01/17 20:30
[2017-03-03 08:56] VITALS: BP 98/56
[2017-03-03] MEDS: LOVENOX SUB-Q SCH (09:33)
[2017-03-03] MEDS: LEVAQUIN 750MG/150ML 750 MG/150 ML BAG IV SCH (09:34)
--- NOTE | 2017-03-03 11:59 | Discharge Summary ---
Providers - Providers Date of Admission: 03/01/17 22:41 Date of discharge: 03/03/17 Attending physician: MOISES TARIQ Primary care physician: [employer] Hospitalization Reason for admission: fever chills cough with expectoration/pneumonia Condition: Stable Pertinent studies: Chest x-ray right middle lobe consolidation Hospital course: 42-year-old male patient with significant past medical history of schizophrenia and depression was admitted through emergency room with atypical chest pain worse with cough H and also had productive cough with yellowish sputum along with fevers and chills and shortness of breath, initially evaluated and noted to have community-acquired pneumonia and sepsis Admitted to hospital symptomatically managed started on empiric antibiotics. Cultures followed which was negative to date, symptoms significantly improved Also received psych medications for his schizophrenia and depression Counseling done patient strongly advised to quit recreational drugs he verbalizes understanding The day of discharge patient was comfortable no new complaints vital signs are stable [id number] evaluation physical examination done by me prior to discharge did not show any new changes Patient is hemodynamically and clinically stable for discharge and does not need any further acute inpatient care Final diagnosis; Community-acquired pneumonia Sepsis secondary to pneumonia Schizophrenia Depression Polysubstance abuse cocaine and marijuana Disposition: DC-01 TO HOME OR SELFCARE Time spent for discharge: 31 min Core Measure Documentation - Palliative Care Palliative Care/ Comfort Measures: Not Applicable - Core Measures Any of the following diagnoses?: none Exam - Constitutional Vitals: Temp Pulse Resp BP Pulse Ox 98 F 51 L 20 98/56 98 03/03/17 08:00 03/03/17 08:00 03/03/17 08:00 03/03/17 08:00 03/03/17 08:53 General appearance: Present: no acute distress, well-nourished - EENT Eyes: Present: PERRL, EOM intact - Neck Neck: Present: supple, normal ROM Plan Activity: no restrictions Diet: regular Additional Instructions: rpt CXR at PMD office in 1 week. Advised to quit recreational drug use Follow up with: PRIMARY CARE, [Primary Care Provider] - 3-5 Days Prescriptions: Levofloxacin [Levaquin TAB] 500 mg PO QDAY #7 tablet traMADol [Ultram 50 MG tab] 50 mg PO Q8H PRN #10 tablet PRN Reason: Pain, Moderate (4-6)
== END 2017-03-03 15:35 | disposition home or self-care (01) | DRG 871 ==
LOC: ED 10:41 → 3A 22:41
PROVIDERS: ADMIT Internal Medicine; ATTEND Internal Medicine
DX: A41.9 Sepsis, unspecified organism (principal); J18.9 Pneumonia, unspecified organism; F32.9 Major depressive disorder, single episode, unspecified; F20.9 Schizophrenia, unspecified; F12.90 Cannabis use, unspecified, uncomplicated; F14.90 Cocaine use, unspecified, uncomplicated; F19.10 Other psychoactive substance abuse, uncomplicated; Z72.89 Other problems related to lifestyle; Z72.0 Tobacco use; Z82.49 Family history of ischemic heart disease and other diseases of the circulatory system
CPT/HCPCS: 36415; 71020; 80048; 80307; 81001; 82140; 82805; 84484; 85025; 87040; 87086; 87493; 93005; 93010; 96365; 96375; 99285; J0456; J0696; J1650; J1885; J1956; J7030; J7050

== ENCOUNTER 2017-03-29 15:27 | Emergency (ER) | payer SELFPAY ==
[2017-03-29 16:05] LABS: Hematocrit 40.6 % (35.5-45.6); Hemoglobin 13.8 gm/dl (11.8-15.2); Mean Corpuscular HGB Conc 34 % (32-34); Mean Corpuscular Hemoglobin 30 pg (28-32); Mean Corpuscular Volume 88 fl (84-94); Platelet Count 233 K/mm3 (140-440); Red Blood Count 4.62 M/mm3 (3.65-5.03); Red Cell Distribution Width 14.2 % (13.2-15.2); White Blood Count 4.4 K/mm3 (4.5-11.0)
[2017-03-29 16:24] LABS: Anion Gap 19 mmol/L; Blood Urea Nitrogen 16 mg/dL (9-20); Calcium 9.1 mg/dL (8.4-10.2); Carbon Dioxide 25 mmol/L (22-30); Chloride 101.8 mmol/L (98-107); Glucose 104 mg/dL (75-100); Potassium 3.9 mmol/L (3.6-5.0); Sodium 142 mmol/L (137-145)
[2017-03-29 16:37] LABS: Blastocytes % (Manual) 0 %
[2017-03-29 16:38] LABS: Anisocytosis 1+
[2017-03-29 16:39] LABS: Diff Status Complete
--- NOTE | 2017-03-29 21:48 | XRay Report ---
FINAL REPORT EXAM: XR CHEST ROUTINE 2V HISTORY: sob TECHNIQUE: PA and lateral chest radiographs PRIORS: None. FINDINGS: No mediastinal shift. Cardiac silhouette is not enlarged. No pneumothorax, effusion, or focal pulmonary opacity. No acute skeletal finding. IMPRESSION: No focal pulmonary opacity.
[2017-03-29] MEDS: ZITHROMAX PO ONE (22:06)
[2017-03-29] MEDS: DELTASONE PO ONE (22:06)
[2017-03-29] MEDS: PROVENTIL IH ONE (22:26)
--- NOTE | 2017-03-29 22:49 | Emergency Department Report ---
ED Chest Pain HPI - General Chief Complaint: Chest Pain Stated Complaint: CHEST PAIN/SOB/ELSA Time Seen by Provider: 03/29/17 21:01 Source: patient Mode of arrival: Ambulatory Limitations: No Limitations - History of Present Illness Initial Comments: Patient is a 42-year-old male past medical history of schizophrenia who presents with right-sided chest pain and shortness of breath that has been going on for 1 month. Patient states that he is getting more short of breath as he walks and does his activities of daily living. He states that his chest pain hurts more when he takes a deep breath it's a 5 out 10 breathing and exertion makes it worse nothing makes it better. 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 Patient was admitted in February with the diagnosis of pneumonia. He was sent home with antibiotics but he never took them. Patient denies having any fevers or chills or any cough or productive sputum. - Related Data Previous Rx's Medication Instructions Recorded Last Taken Type Levofloxacin [Levaquin TAB] 500 mg PO QDAY #7 tablet 03/03/17 Unknown Rx traMADol [Ultram 50 MG tab] 50 mg PO Q8H PRN #10 tablet 03/03/17 Unknown Rx Azithromycin [Zithromax TAB] 500 mg PO QDAY #5 tablet 03/30/17 Unknown Rx Azithromycin [Zithromax Z-VAHID] 250 mg PO DAILY #5 tablet 03/30/17 Unknown Rx Allergies Allergy/AdvReac Type Severity Reaction Status Date / Time No Known Allergies Allergy Verified 03/29/17 15:45 Heart Score - HEART Score History: Slightly suspicious EKG: Normal Age: < 45 Risk factors: No known risk factors Troponin: < normal limit HEART Score: 0 - Critical Actions Critical Actions: 0-3 pts:0.9-1.7%risk of adverse cardiac event.Candidate for discharge ED Review of Systems ROS: Stated complaint: CHEST PAIN/SOB/ELSA Other details as noted in HPI Constitutional: no symptoms reported Eyes: as per HPI ENT: as per HPI Respiratory: SOB with exertion Cardiovascular: chest pain Endocrine: no symptoms reported Gastrointestinal: denies: abdominal pain, nausea, diarrhea Genitourinary: denies: urgency, dysuria Musculoskeletal: denies: back pain, joint swelling, arthralgia Skin: denies: rash, lesions Neurological: denies: headache, weakness, paresthesias Psychiatric: denies: anxiety, depression Hematological/Lymphatic: denies: easy bleeding, easy bruising ED Past Medical Hx - Past Medical History Previous Medical History?: Yes Hx Congestive Heart Failure: No Hx Diabetes: No Hx Psychiatric Treatment: Yes ([facility] - outpatient) Hx Asthma: No Hx COPD: No Additional medical history: depression, schizophrenic - Surgical History Past Surgical History?: Yes Additional Surgical History: Right foot surgery - Social History Smoking Status: Never Smoker Substance Use Type: None - Medications Home Medications: Home Medications Medication Instructions Recorded Confirmed Last Taken Type Levofloxacin [Levaquin TAB] 500 mg PO QDAY #7 tablet 03/03/17 Unknown Rx traMADol [Ultram 50 MG tab] 50 mg PO Q8H PRN #10 tablet 03/03/17 Unknown Rx Azithromycin [Zithromax TAB] 500 mg PO QDAY #5 tablet 03/30/17 Unknown Rx Azithromycin [Zithromax Z-VAHID] 250 mg PO DAILY #5 tablet 03/30/17 Unknown Rx ED Physical Exam - General Limitations: No Limitations General appearance: alert, in no apparent distress - Head Head exam: Present: atraumatic, normocephalic - Eye Eye exam: Present: normal appearance - ENT ENT exam: Present: mucous membranes moist - Neck Neck exam: Present: normal inspection - Respiratory Respiratory exam: Present: normal lung sounds bilaterally. Absent: respiratory distress - Cardiovascular Cardiovascular Exam: Present: regular rate, normal rhythm. Absent: systolic murmur, diastolic murmur, rubs, gallop - GI/Abdominal GI/Abdominal exam: Present: soft, normal bowel sounds - Rectal Rectal exam: Present: deferred - Extremities Exam Extremities exam: Present: normal inspection - Back Exam Back exam: Present: normal inspection - Neurological Exam Neurological exam: Present: alert, oriented X3 - Psychiatric Psychiatric exam: Present: agitated, flat affect. Absent: homicidal ideation, suicidal ideation - Skin Skin exam: Present: warm ED Course Vital Signs 03/29/17 03/29/17 03/29/17 15:46 21:22 22:20 Temperature 98.6 F Pulse Rate 80 100 H Pulse Rate [ 66 Anterior Bilateral Throughout] Respiratory 20 16 Rate Respiratory 18 Rate [Anterior Bilateral Throughout] Blood Pressure 103/62 Blood Pressure 107/70 [Left] O2 Sat by Pulse 99 97 Oximetry 03/29/17 03/30/17 22:37 01:00 Temperature Pulse Rate 68 Pulse Rate [ 69 Anterior Bilateral Throughout] Respiratory 16 Rate Respiratory 18 Rate [Anterior Bilateral Throughout] Blood Pressure Blood Pressure 95/55 [Left] O2 Sat by Pulse 100 Oximetry - Reevaluation(s) Reevaluation #1: 03/29/17 22:44 Patient still states that he is short of breath will get a CT PE and will give patient oral analgesic medication. Reevaluation #2: 03/30/17 01:[address] and with the patient shows slight middle lobe effusion woke up patient azithromycin orally and have him follow-up. KOBY score - Koby Score Age > 65: (0) No Aspirin use within the Past 7 Days: (0) No 3 or more CAD Risk Factors: (0) No 2 or more Angina events in past 24 hrs: (0) No Known CAD with more than 50% Stenosis: (0) No Elevated Cardiac Markers: (0) No ST Deviation Greater than 0.5mm: (0) No KOBY Score: 0 ED Medical Decision Making - Lab Data Result diagrams: 03/29/17 15:52 03/29/17 15:52 Laboratory Results - last 24 hr 03/29/17 03/29/17 03/29/17 15:52 15:52 19:13 WBC 4.4 L RBC 4.62 Hgb 13.8 Hct 40.6 MCV 88 MCH 30 MCHC 34 RDW 14.2 Plt Count 233 Add Manual Diff Complete Total Counted 100 Seg Neutrophils % Horse Race Timer Seg Neuts % (Manual) 35.0 L Band Neutrophils % 0 Lymphocytes % (Manual) 47.0 H Reactive Lymphs % (Man) 0 Monocytes % (Manual) 11.0 H Eosinophils % (Manual) 6.0 H Basophils % (Manual) 1.0 Metamyelocytes % 0 Myelocytes % 0 Promyelocytes % 0 Blast Cells % 0 Nucleated RBC % Not Reportable Seg Neutrophils # Man 1.5 L Band Neutrophils # 0.0 Lymphocytes # (Manual) 2.1 Abs React Lymphs (Man) 0.0 Monocytes # (Manual) 0.5 Eosinophils # (Manual) 0.3 Basophils # (Manual) 0.0 Metamyelocytes # 0.0 Myelocytes # 0.0 Promyelocytes # 0.0 Blast Cells # 0.0 WBC Morphology Not Reportable Hypersegmented Neuts Not Reportable Hyposegmented Neuts Not Reportable Hypogranular Neuts Not Reportable Smudge Cells Not Reportable Toxic Granulation Not Reportable Toxic Vacuolation Not Reportable Dohle Bodies Not Reportable Pelger-Huet Anomaly Not Reportable Tobi Rods Not Reportable Platelet Estimate Appears normal Clumped Platelets Not Reportable Plt Clumps, EDTA Not Reportable Large Platelets Not Reportable Giant Platelets Not Reportable Platelet Satelliting Not Reportable Plt Morphology Comment Not Reportable RBC Morphology Not Reportable Dimorphic RBCs Not Reportable Polychromasia Not Reportable Hypochromasia Not Reportable Poikilocytosis Not Reportable Anisocytosis 1+ Microcytosis Not Reportable Macrocytosis Not Reportable Spherocytes Not Reportable Pappenheimer Bodies Not Reportable Sickle Cells Not Reportable Target Cells Not Reportable Tear Drop Cells Not Reportable Ovalocytes Not Reportable Helmet Cells Not Reportable Braun-Syosset Bodies Not Reportable Harmony Rings Not Reportable [place] Cells Not Reportable Bite Cells Not Reportable Crenated Cell Not Reportable Elliptocytes Not Reportable Acanthocytes (Spur) Not Reportable Rouleaux Not Reportable Hemoglobin C Crystals Not Reportable Schistocytes Not Reportable Malaria parasites Not Reportable Jason Bodies Not Reportable Hem Pathologist Commnt No Sodium 142 Potassium 3.9 Chloride 101.8 Carbon Dioxide 25 Anion Gap 19 BUN 16 Creatinine 0.8 Estimated GFR > 60 BUN/Creatinine Ratio 20.00 Glucose 104 H Calcium 9.1 Troponin T < 0.010 < 0.010 03/29/17 21:26 WBC RBC Hgb Hct MCV MCH MCHC RDW Plt Count Add Manual Diff Total Counted Seg Neutrophils % Seg Neuts % (Manual) Band Neutrophils % Lymphocytes % (Manual) Reactive Lymphs % (Man) Monocytes % (Manual) Eosinophils % (Manual) Basophils % (Manual) Metamyelocytes % Myelocytes % Promyelocytes % Blast Cells % Nucleated RBC % Seg Neutrophils # Man Band Neutrophils # Lymphocytes # (Manual) Abs React Lymphs (Man) Monocytes # (Manual) Eosinophils # (Manual) Basophils # (Manual) Metamyelocytes # Myelocytes # Promyelocytes # Blast Cells # WBC Morphology Hypersegmented Neuts Hyposegmented Neuts Hypogranular Neuts Smudge Cells Toxic Granulation Toxic Vacuolation Dohle Bodies Pelger-Huet Anomaly Tobi Rods Platelet Estimate Clumped Platelets Plt Clumps, EDTA Large Platelets Giant Platelets Platelet Satelliting Plt Morphology Comment RBC Morphology Dimorphic RBCs Polychromasia Hypochromasia Poikilocytosis Anisocytosis Microcytosis Macrocytosis Spherocytes Pappenheimer Bodies Sickle Cells Target Cells Tear Drop Cells Ovalocytes Helmet Cells Braun-Syosset Bodies Harmony Rings [place] Cells Bite Cells Crenated Cell Elliptocytes Acanthocytes (Spur) Rouleaux Hemoglobin C Crystals Schistocytes Malaria parasites Jason Bodies Hem Pathologist Commnt Sodium Potassium Chloride Carbon Dioxide Anion Gap BUN Creatinine Estimated GFR BUN/Creatinine Ratio Glucose Calcium Troponin T < 0.010 - EKG Data -: EKG Interpreted by Me - EKG Data 03/30/17 03:36 EKG shows normal sinus rhythm, possible left atrial enlargement ventricle hypertrophy and early repolarization. - Radiology Data Radiology results: report reviewed, image reviewed Chest x-ray shows no acute pulmonary disease CT angios shows trace lobular effusion no signs of pulmonary embolism. - Medical Decision Making Chief medical diagnosis: Pneumonia Differential medical diagnosis pulmonary embolism, chest wall pain, pericarditis , and STEMI We'll get troponin, CBC CMP chest x-ray, pain control and CTA angiogram Patient states of albuterol and prednisone didn't really help that much but his pain is better controlled. Patient has no findings on chest x-ray or CT angiotech spinous shortness of breath EKG and troponins are negative we'll send patient home with follow-up with PCP. Patient ambulatory at discharge with no shortness of breath as he was walking out. Critical care attestation.: If time is entered above; I have spent that time in minutes in the direct care of this critically ill patient, excluding procedure time. ED Disposition Clinical Impression: SOB (shortness of breath), Chest wall pain Disposition: DC-01 TO HOME OR SELFCARE Is pt being admited?: No Does the pt Need Aspirin: No Condition: Stable Instructions: Chest Pain (ED), Bacterial Pneumonia (ED) Prescriptions: Azithromycin [Zithromax Z-VAHID] 250 mg PO DAILY #5 tablet Azithromycin [Zithromax TAB] 500 mg PO QDAY #5 tablet Referrals: PRIMARY CAREMD [Primary Care Provider] - 3-5 Days KIN GILLIAM MD [Staff Physician] - 3-5 Days Forms: Work/School Release Form(ED) Time of Disposition: 01:08
[2017-03-29] MEDS: MOTRIN PO ONE (23:11)
[2017-03-29] MEDS: NORCO 10/325 PO ONE (23:11)
[2017-03-29] MEDS ORDERED: NACL ONE (23:36)
--- NOTE | 2017-03-30 00:51 | Cat Scan Report ---
FINAL REPORT PROCEDURE: CT ANGIO CHEST TECHNIQUE: Computerized tomographic angiography of the chest was performed after the IV injection of iodinated nonionic contrast including image processing. The image data was postprocessed using 2-dimensional multiplanar reformatted (MPR) and 3-dimensional (MIP and/or volume rendered) techniques. HISTORY: sob when walking. hx pneumonia 03-01-17 COMPARISON: No prior studies are available for comparison. FINDINGS: Heart and pericardium: Normal. Thoracic aorta: Normal. Pulmonary vasculature: Normal. Lymph nodes: No enlarged thoracic lymph nodes. Lungs: Small area of atelectasis in the right middle lung medially. The remainder of the lungs are clear. No consolidation, effusion or pneumothorax. The central airway is patent. Pleural space: No effusion, thickening, or pneumothorax. Musculoskeletal structures: No significant abnormality. Upper abdominal structures: No significant abnormality. IMPRESSION: There is no evidence of pulmonary arterial emboli. Slight atelectasis right middle lung medially. No evidence of a consolidation, effusion or pneumothorax.
[2017-03-30 01:07] VITALS: BP 95/55
== END 2017-03-30 02:00 | disposition home or self-care (01) ==
LOC: ED 15:27
DX: R07.89 Other chest pain (principal); R06.02 Shortness of breath
CPT/HCPCS: 36415; 71020; 71275; 80048; 84484; 85007; 85025; 93005; 93010; 94640; 99285; J7512; Q9967

== ENCOUNTER 2017-04-02 13:56 | Emergency (ER) | payer SELFPAY ==
[2017-04-02 16:04] VITALS: BP 97/60
--- NOTE | 2017-04-02 16:04 | Emergency Department Report ---
Stated Complaint: SOB/DIARRHEA Time Seen by Provider: 04/02/17 16:00 - HPI History of Present Illness: PT states he was seen in the ED for same. PT states he went to follow up appointment today. PT states when he got there, he was told that the visit would cost money. When pt stated he could not pay, he was advised to go back to the ED PT c/o SOB x 1 month - ROS Review of Systems: + diarrhea + dry cough - fever - Exam Physical Exam: Thin male, no acute distress abd soft and not tender MSE screening note: Focused history and physical exam performed. Due to findings the following was ordered: ekg, labs ED Disposition for MSE Condition: Stable
[2017-04-02 17:10] LABS: Hematocrit 43.3 % (35.5-45.6); Hemoglobin 14.3 gm/dl (11.8-15.2); Mean Corpuscular HGB Conc 33 % (32-34); Mean Corpuscular Hemoglobin 30 pg (28-32); Mean Corpuscular Volume 91 fl (84-94); Platelet Count 265 K/mm3 (140-440); Red Blood Count 4.77 M/mm3 (3.65-5.03); Red Cell Distribution Width 14.5 % (13.2-15.2); White Blood Count 4.7 K/mm3 (4.5-11.0)
[2017-04-02 17:27] LABS: Alanine Aminotransferase 14 units/L (7-56); Albumin 4.5 g/dL (3.9-5); Albumin/Globulin Ratio 1.6 %; Alkaline Phosphatase 61 units/L (35-129); Anion Gap 20 mmol/L; Blood Urea Nitrogen 9 mg/dL (9-20); Carbon Dioxide 28 mmol/L (22-30); Glucose 109 mg/dL (75-100); Lipase 107 units/L (13-60); Potassium 4.5 mmol/L (3.6-5.0); Sodium 143 mmol/L (137-145); Total Protein 7.4 g/dL (6.3-8.2)
[2017-04-02 18:44] LABS: Basophils % (Manual) 0 % (0.0-1.8); Blastocytes % (Manual) 0 %
[2017-04-02 18:45] LABS: Anisocytosis 1+
[2017-04-02 18:46] LABS: Diff Status Complete
--- NOTE | 2017-04-02 18:59 | Emergency Department Report ---
ED Shortness of Breath HPI - General Chief Complaint: Dyspnea/Respdistress Stated Complaint: SOB/DIARRHEA Time Seen by Provider: 04/02/17 16:00 Source: patient Mode of arrival: Ambulatory Limitations: No Limitations - History of Present Illness Initial Comments: Patient is a 42-year-old male who was diagnosed with pneumonia approximately 1 month ago returning to the emergency department with shortness of breath. Patient states that he's been shortness of breath persistently for the last month. He gets very short of breath with exertion. He is not having any chest pain. He was recently evaluated in the emergency department last Sunday for the shortness of breath and was supposed to follow up with primary care doctor. At that time he had a CT scan which did not show any pulmonary embolism. Otherwise he denies other complaints she has no cough he does not feel like he is wheezing. MD Complaint: shortness of breath -: Gradual Severity: mild Improves With: rest Worsens With: exertion Associated Symptoms: denies other symptoms Treatments Prior to Arrival: none - Related Data Home Oxygen Therapy: No Previous Rx's Medication Instructions Recorded Last Taken Type Levofloxacin [Levaquin TAB] 500 mg PO QDAY #7 tablet 03/03/17 Unknown Rx traMADol [Ultram 50 MG tab] 50 mg PO Q8H PRN #10 tablet 03/03/17 Unknown Rx Azithromycin [Zithromax TAB] 500 mg PO QDAY #5 tablet 03/30/17 Unknown Rx Azithromycin [Zithromax Z-VAHID] 250 mg PO DAILY #5 tablet 03/30/17 Unknown Rx Albuterol Sulfate [Proair 90 mcg IH Q6HR PRN #1 aer.[email or web address] 04/02/17 Unknown Rx Respiclick] Allergies Allergy/AdvReac Type Severity Reaction Status Date / Time No Known Allergies Allergy Verified 03/29/17 15:45 ED Review of Systems ROS: Stated complaint: SOB/DIARRHEA Other details as noted in HPI Comment: All other systems reviewed and negative Constitutional: denies: chills, fever Eyes: denies: eye pain, eye discharge, vision change ENT: denies: ear pain, throat pain Respiratory: shortness of breath. denies: cough, wheezing Cardiovascular: denies: chest pain, palpitations Endocrine: no symptoms reported Gastrointestinal: denies: abdominal pain, nausea, diarrhea Genitourinary: denies: urgency, dysuria Musculoskeletal: denies: back pain, joint swelling, arthralgia Skin: denies: rash, lesions Neurological: denies: headache, weakness, paresthesias Psychiatric: denies: anxiety, depression Hematological/Lymphatic: denies: easy bleeding, easy bruising ED Past Medical Hx - Past Medical History Previous Medical History?: Yes Hx Congestive Heart Failure: No Hx Diabetes: No Hx Psychiatric Treatment: Yes ([facility] - outpatient) Hx Asthma: No Hx COPD: No Additional medical history: depression, schizophrenic - Surgical History Past Surgical History?: Yes Additional Surgical History: Right foot surgery - Family History Family history: no significant - Social History Smoking Status: Current Some Day Smoker Substance Use Type: Alcohol - Medications Home Medications: Home Medications Medication Instructions Recorded Confirmed Last Taken Type Levofloxacin [Levaquin TAB] 500 mg PO QDAY #7 tablet 03/03/17 Unknown Rx traMADol [Ultram 50 MG tab] 50 mg PO Q8H PRN #10 tablet 03/03/17 Unknown Rx Azithromycin [Zithromax TAB] 500 mg PO QDAY #5 tablet 03/30/17 Unknown Rx Azithromycin [Zithromax Z-VAHID] 250 mg PO DAILY #5 tablet 03/30/17 Unknown Rx Albuterol Sulfate [Proair 90 mcg IH Q6HR PRN #1 aer.[email or web address] 04/02/17 Unknown Rx Respiclick] ED Physical Exam - General Limitations: No Limitations General appearance: alert, in no apparent distress - Head Head exam: Present: atraumatic, normocephalic - Eye Eye exam: Present: normal appearance. Absent: scleral icterus, conjunctival injection - ENT ENT exam: Present: mucous membranes moist. Absent: mucous membranes dry - Neck Neck exam: Present: normal inspection - Respiratory Respiratory exam: Present: normal lung sounds bilaterally. Absent: respiratory distress, wheezes, rales, rhonchi - Cardiovascular Cardiovascular Exam: Present: regular rate, normal rhythm, other (no muffled heart sounds). Absent: systolic murmur, diastolic murmur, rubs, gallop - GI/Abdominal GI/Abdominal exam: Present: soft, normal bowel sounds. Absent: distended, tenderness - Rectal Rectal exam: Present: deferred - Extremities Exam Extremities exam: Present: normal inspection - Back Exam Back exam: Present: normal inspection - Neurological Exam Neurological exam: Present: alert, oriented X3 - Psychiatric Psychiatric exam: Present: normal affect, normal mood - Skin Skin exam: Present: warm, dry, intact, normal color. Absent: rash ED Course Vital Signs 04/02/17 16:00 Temperature 98 F Pulse Rate 75 Respiratory 16 Rate Blood Pressure 97/60 O2 Sat by Pulse 100 Oximetry ED Medical Decision Making - Lab Data Result diagrams: 04/02/17 16:33 04/02/17 16:33 Laboratory Results - last 24 hr 04/02/17 04/02/17 16:33 16:33 WBC 4.7 RBC 4.77 Hgb 14.3 Hct 43.3 MCV 91 MCH 30 MCHC 33 RDW 14.5 Plt Count 265 Add Manual Diff Complete Total Counted 100 Seg Neutrophils % [place] Seg Neuts % (Manual) 41.0 Band Neutrophils % 0 Lymphocytes % (Manual) 43.0 H Reactive Lymphs % (Man) 0 Monocytes % (Manual) 9.0 H Eosinophils % (Manual) 7.0 H Basophils % (Manual) 0 Metamyelocytes % 0 Myelocytes % 0 Promyelocytes % 0 Blast Cells % 0 Nucleated RBC % Not Reportable Seg Neutrophils # Man 1.9 Band Neutrophils # 0.0 Lymphocytes # (Manual) 2.0 Abs React Lymphs (Man) 0.0 Monocytes # (Manual) 0.4 Eosinophils # (Manual) 0.3 Basophils # (Manual) 0.0 Metamyelocytes # 0.0 Myelocytes # 0.0 Promyelocytes # 0.0 Blast Cells # 0.0 WBC Morphology Not Reportable Hypersegmented Neuts Not Reportable Hyposegmented Neuts Not Reportable Hypogranular Neuts Not Reportable Smudge Cells Not Reportable Toxic Granulation Not Reportable Toxic Vacuolation Not Reportable Dohle Bodies Not Reportable Pelger-Huet Anomaly Not Reportable Tobi Rods Not Reportable Platelet Estimate Appears normal Clumped Platelets Not Reportable Plt Clumps, EDTA Not Reportable Large Platelets Not Reportable Giant Platelets Not Reportable Platelet Satelliting Not Reportable Plt Morphology Comment Not Reportable RBC Morphology Not Reportable Dimorphic RBCs Not Reportable Polychromasia Not Reportable Hypochromasia Not Reportable Poikilocytosis Not Reportable Anisocytosis 1+ Microcytosis Not Reportable Macrocytosis Not Reportable Spherocytes Not Reportable Pappenheimer Bodies Not Reportable Sickle Cells Not Reportable Target Cells Not Reportable Tear Drop Cells Not Reportable Ovalocytes Not Reportable Helmet Cells Not Reportable [place] Bodies Not Reportable [place] Rings Not Reportable Carol Cells Not Reportable Bite Cells Not Reportable Crenated Cell Not Reportable Elliptocytes Not Reportable Acanthocytes (Spur) Not Reportable Rouleaux Not Reportable Hemoglobin C Crystals Not Reportable Schistocytes Not Reportable Malaria parasites Not Reportable Jason Bodies Not Reportable Hem Pathologist Commnt No Sodium 143 Potassium 4.5 Chloride 100.0 Carbon Dioxide 28 Anion Gap 20 BUN 9 Creatinine 0.9 Estimated GFR > 60 BUN/Creatinine Ratio 10.00 Glucose 109 H Calcium 9.0 Total Bilirubin 0.40 AST 18 ALT 14 Alkaline Phosphatase 61 Troponin T < 0.010 NT-Pro-B Natriuret Pep 20.14 Total Protein 7.4 Albumin 4.5 Albumin/Globulin Ratio 1.6 Lipase 107 H - EKG Data -: EKG Interpreted by De - EKG Data 04/02/17 18:57 Sinus 75 right axis deviation normal intervals, he does have some diffuse ST elevation in his inferior lateral leads. This is present on an old EKG dated from 4 days ago. However this is more pronounced when compared to his EKG from one month ago. 04/02/17 19:01 - Radiology Data Radiology results: image reviewed No change in chest x-ray when compared to 4 days ago. - Medical Decision Making Patient is a 42-year-old male with return visit to the ER with continued shortness of breath. Patient tried to follow up as outpatient but did not have his co-pay so return to the emergency department with continued shortness of breath. He states he does not have any chest pain. His EKG shows some diffuse ST elevation. This is different than his EKG from one month ago. He had a CT scan on Sunday but did not show any evidence of PE. He had no evidence of pericardial effusion on CT. It is unclear precisely what is causing his shortness of breath this point. It is possible he had some pericarditis however it does not appear that he has an effusion. I counseled him to finish his course of antibiotics. At this point I will put him on an inhaler and counseled that he needs to follow-up with a [facility] as soon as possible. Chest x-ray unchanged. Do not believe the patient has pericardial effusion. Portions of this chart were dictated with dictation software. There may be dictation errors contained within this note. Critical care attestation.: If time is entered above; I have spent that time in minutes in the direct care of this critically ill patient, excluding procedure time. ED Disposition Clinical Impression: SOB (shortness of breath) Disposition: DC-01 TO HOME OR SELFCARE Is pt being admited?: No Condition: Stable Instructions: Dyspnea (ED) Additional Instructions: Please follow up with pulmonology. Prescriptions: Albuterol Sulfate [Proair Respiclick] 90 mcg IH Q6HR PRN #1 aer.[email or web address] PRN Reason: Shortness Of Breath Referrals: PRIMARY CARE, [Primary Care Provider] - 3-5 Days
[2017-04-02 19:51] LABS: Bacteria,Urine 1+ /HPF (Negative); Bilirubin,Urine NEG (Negative); Blood,Urine NEG (Negative); Ketones,Urine NEG (Negative); Leukocyte Esterase,Urine NEG (Negative); Mucus,Urine 3+ /HPF; Nitrite,Urine NEG (Negative); WBC,Urine < 1.0 /HPF (0.0-6.0)
--- NOTE | 2017-04-03 09:37 | XRay Report ---
ROUTINE CHEST, TWO VIEWS: History: Shortness of breath. PA and lateral views demonstrate the heart and mediastinal contour to be of normal size and shape. The lungs are clear and fully expanded and the soft tissues and bony structures are normal. IMPRESSION: Normal study.
== END 2017-04-02 19:50 | disposition home or self-care (01) ==
LOC: ED 13:56
DX: R06.02 Shortness of breath (principal); F17.200 Nicotine dependence, unspecified, uncomplicated
CPT/HCPCS: 36415; 71020; 80053; 81001; 83690; 83880; 84484; 85007; 85025; 93005; 93010

== ENCOUNTER 2017-06-08 22:55 | Emergency (ER) | payer SELFPAY ==
[2017-06-09] MEDS ORDERED: ZOFRAN ONE (04:47)
[2017-06-09] MEDS ORDERED: MORPHINE ONE (04:47)
[2017-06-09] MEDS ORDERED: TORADOL ONE (04:47)
[2017-06-09 04:50] LABS: Basophils % (Auto) 0.5 % (0.0-1.8); Eosinophils % (Auto) 0.5 % (0.0-4.3); Hematocrit 42.7 % (35.5-45.6); Hemoglobin 14.6 gm/dl (11.8-15.2); Mean Corpuscular HGB Conc 34 % (32-34); Mean Corpuscular Hemoglobin 31 pg (28-32); Mean Corpuscular Volume 89 fl (84-94); Platelet Count 296 K/mm3 (140-440); Red Blood Count 4.79 M/mm3 (3.65-5.03); Red Cell Distribution Width 14.2 % (13.2-15.2); White Blood Count 12.4 K/mm3 (4.5-11.0)
[2017-06-09] MEDS ORDERED: TORADOL IV ONE (04:50)
[2017-06-09] MEDS ORDERED: MORPHINE IV ONE (04:50)
[2017-06-09] MEDS ORDERED: ZOFRAN IV ONE (04:50)
[2017-06-09 04:57] LABS: Albumin 4.1 g/dL (3.9-5); Albumin/Globulin Ratio 1.1 %; Alkaline Phosphatase 59 units/L (35-129); Anion Gap 19 mmol/L; BUN/Creatinine Ratio 14; Blood Urea Nitrogen 10 mg/dL (9-20); Calcium 9.1 mg/dL (8.4-10.2); Carbon Dioxide 26 mmol/L (22-30); Chloride 100.2 mmol/L (98-107); Glucose 138 mg/dL (75-100); Sodium 141 mmol/L (137-145); Total Protein 7.7 g/dL (6.3-8.2)
[2017-06-09 05:00] LABS: Alanine Aminotransferase 16 units/L (7-56)
[2017-06-09] MEDS ORDERED: CLEOCIN 900 MG/50 mL 900 MG/50 ML BAG IV ONE (05:55)
[2017-06-09 05:57] LABS: Erythrocyte Sedimentation Rate 17 mm/Hr (0-20)
--- NOTE | 2017-06-09 06:01 | Emergency Department Report ---
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 He ,however, denies burning his finger on the lawnmower. He also denies any injury, insect bites or infection around his nail. ED Review of Systems ROS: Stated complaint: LT MIDDLE FINGER SWOLLEN Other details as noted in HPI ED Past Medical Hx - Past Medical History Previous Medical History?: Yes Hx Congestive Heart Failure: No Hx Diabetes: No Hx Psychiatric Treatment: Yes ([facility] - outpatient) Hx Asthma: No Hx COPD: No Additional medical history: depression, schizophrenic - Surgical History Past Surgical History?: Yes Additional Surgical History: Right foot surgery - Social History Smoking Status: Former Smoker Substance Use Type: None - Medications Home Medications: Home Medications Medication Instructions Recorded Confirmed Last Taken Type Levofloxacin [Levaquin TAB] 500 mg PO QDAY #7 tablet 03/03/17 Unknown Rx traMADol [Ultram 50 MG tab] 50 mg PO Q8H PRN #10 tablet 03/03/17 Unknown Rx Azithromycin [Zithromax TAB] 500 mg PO QDAY #5 tablet 03/30/17 Unknown Rx Azithromycin [Zithromax Z-VAHID] 250 mg PO DAILY #5 tablet 03/30/17 Unknown Rx Albuterol Sulfate [Proair 90 mcg IH Q6HR PRN #1 aer.[email or web address] 04/02/17 Unknown Rx Respiclick] Upper Extremity Exam - Exam General: Vital signs noted. No distress. Alert and acting appropriately. Head and Torso: No HEENT Abnormality, No Neck Tenderness, No Chest/Lungs Abnormality, No Abdominal Tenderness, No Back Tenderness Shoulder Exam: No Shoulder Tenderness, No Clavicle Tenderness, No Normal Range of Motion in Shoulder, No Shoulder Deformity Arm Exam: No Arm/Humerus Tenderness, No Arm Deformity Elbow: Yes Normal Range of Motion in Elbow, No Elbow Deformity Forearm: Yes Forearm Tenderness, Yes Pain with Pronation, Yes Pain with Supination, No Forearm Deformity Wrist: Yes Wrist Tenderness, Yes Normal ROM in Wrist, No Wrist Deformity, No Snuffbox Tenderness Hand: Yes Hand Tenderness (arm and forarm, and axillary lymphadenopathy), Yes Digit Tenderness (3 digit on right hand) CMS Exam: No Broken Skin, No Normal Distal Pulses, No Normal Capillary Refill, No Normal Distal Sensation Hand L/R Front: 1 - swollen, tense, pus filled ED Course Vital Signs 06/08/17 06/09/17 23:19 04:51 Temperature 98.8 F Pulse Rate 99 H Respiratory 20 18 Rate Blood Pressure 109/75 O2 Sat by Pulse 100 Oximetry ED Medical Decision Making - Lab Data Result diagrams: 06/09/17 04:13 06/09/17 04:13 - Radiology Data Radiology results: report reviewed osteomylitis, deep tissue infection,cellulitis - Medical Decision Making Mr Pastor needs to be transferred to a hand surgeon. his infection is severe and he need immediate OR management. Dr Chapin from [facility] was contacted and has accepted this him. - Differential Diagnosis compartment syndrome, deep tissue infection Critical care attestation.: If time is entered above; I have spent that time in minutes in the direct care of this critically ill patient, excluding procedure time. ED Disposition Clinical Impression: Finger infection, Infected hand Osteomyelitis Qualifiers: Osteomyelitis type: acute hematogenous Osteomyelitis location: hand Laterality : left Qualified Code(s): M86.042 - Acute hematogenous osteomyelitis, left hand Disposition: DC/TX-70 ANOTHER TYPE HLTHCARE Is pt being admited?: Yes Does the pt Need Aspirin: No Condition: Serious Instructions: Cellulitis (ED) Time of Disposition: 07:06 (Transfer to [facility] ED)
[2017-06-09 06:18] VITALS: BP 104/76
[2017-06-09] MEDS ORDERED: TYLENOL PO ONE (06:20)
[2017-06-09] MEDS ORDERED: TYLENOL ONE (06:22)
--- NOTE | 2017-06-09 06:22 | XRay Report ---
FINAL REPORT EXAM: XR FINGER(S) 2+V LT HISTORY: infectionin 3rd digit of left hand TECHNIQUE: Three views of the left middle finger were submitted. FINDINGS: There is diffuse soft tissue swelling around the entire 3rd finger. On the lateral view there are localized areas of cortical erosions along the ventral margin of the distal phalanx. Developing osteomyelitis cannot be excluded. There is no evidence of foreign body in the soft tissues. IMPRESSION: Diffuse cellulitis around the entire middle finger. Localized cortical erosions along the ventral margin of the distal phalanx suspicious for osteomyelitis.
== END 2017-06-09 09:00 | disposition other institution (70) ==
LOC: ED 22:55
DX: M86.042 Acute hematogenous osteomyelitis, left hand (principal); L08.9 Local infection of the skin and subcutaneous tissue, unspecified
CPT/HCPCS: 36415; 73140; 80053; 82140; 82550; 85025; 85652; 86140; 96365; 96375; 99285; J1885; J2270; J2405

== ENCOUNTER 2018-11-16 02:00 | Emergency (ER) | payer SELFPAY ==
[2018-11-16] MEDS ORDERED: NACL 0.9% 1000 ML 1,000 ML IV ONE (02:51)
[2018-11-16 03:13] LABS: Basophils # (Auto) 0.1 K/mm3 (0.0-0.1); Basophils % (Auto) 0.8 % (0.0-1.8); Eosinophils % (Auto) 0.1 % (0.0-4.3); Hematocrit 46.1 % (35.5-45.6); Lymphocytes # (Auto) 1.4 K/mm3 (1.2-5.4); Lymphocytes % (Auto) 16.9 % (13.4-35.0); Mean Corpuscular HGB Conc 35 % (32-34); Mean Corpuscular Volume 89 fl (84-94); Monocytes # (Auto) 0.7 K/mm3 (0.0-0.8); Monocytes % (Auto) 8.6 % (0.0-7.3); Platelet Count 298 K/mm3 (140-440); Red Blood Count 5.17 M/mm3 (3.65-5.03); Red Cell Distribution Width 13.3 % (13.2-15.2)
[2018-11-16 03:22] LABS: BUN/Creatinine Ratio 10; Blood Urea Nitrogen 10 mg/dL (9-20); Calcium 9.8 mg/dL (8.4-10.2); Hemolysis Index 14
[2018-11-16 04:50] LABS: Bilirubin,Urine NEG (Negative); Blood,Urine NEG (Negative); Color,Urine Colorless (Yellow); Protein,Urine <15 mg/dL mg/dL (Negative); Urobilinogen,Urine < 2.0 mg/dL (<2.0); WBC,Urine < 1.0 /HPF (0.0-6.0)
[2018-11-16 04:59] LABS: Amphetamine Screen,Urine PRESUMPTIVE NEGATIVE; Benzodiazepines Screen,Urine PRESUMPTIVE NEGATIVE; Methadone Screen,Urine PRESUMPTIVE NEGATIVE; Opiate Screen,Urine PRESUMPTIVE NEGATIVE
[2018-11-16 05:21] LABS: Cannabinoid Screen,Urine PRESUMPTIVE POSITIVE; Cocaine Screen,Urine PRESUMPTIVE POSITIVE
[2018-11-16] MEDS ORDERED: TYLENOL PO ONE (06:08)
--- NOTE | 2018-11-16 06:12 | Emergency Department Report ---
HPI - General Chief Complaint: Psych Time Seen by Provider: 11/16/18 06:01 - [facility] HPI: Room 9 The patient is a 43-year-old male presenting with a chief complaint of fear and homicidal ideation. Patient states for several weeks he's had anxiety, fear auditory hallucinations and homicidal ideation. Patient states he was sent to [facility] and placed on Zoloft for the symptoms have not improved. Patient states he has homicidal ideation towards someone that he works with secondary to not being paid. Patient states he feels worthless. Patient denies suicidal ideation. He states he has auditory hallucinations telling him to harm people for no reason or to push people Location: Mental state Duration: 2-3 weeks Quality: Homicidal Severity: Severe Modifying factors: [see above] Context: [see above] Mode of transportation: [not driving] ED Past Medical Hx - Past Medical History Hx Psychiatric Treatment: Yes (Anxiety, depression) - Surgical History Past Surgical History?: Yes Additional Surgical History: Right foot surgery - Family History Family history: no significant - Social History Smoking Status: Current Some Day Smoker Substance Use Type: Alcohol, Cocaine, Marijuana - Medications Home Medications: Home Medications Medication Instructions Recorded Confirmed Last Taken Type No Known Home Medications [No 11/08/18 11/08/18 Unknown History Reported Home Medications] ED Review of Systems ROS: Stated complaint: MH EVALUATION Other details as noted in HPI Constitutional: no symptoms reported Eyes: denies: eye pain ENT: denies: throat pain Respiratory: no symptoms reported Cardiovascular: denies: chest pain Endocrine: no symptoms reported Gastrointestinal: denies: abdominal pain Genitourinary: denies: dysuria Musculoskeletal: denies: back pain Neurological: headache Psychiatric: auditory hallucinations, homicidal thoughts. denies: suicidal thoughts Physical Exam - Physical Exam Vital Signs: Vital Signs 11/16/18 02:37 Temperature 98.2 F Pulse Rate 96 H Respiratory 18 Rate Blood Pressure 125/92 O2 Sat by Pulse 100 Oximetry Physical Exam: GENERAL: The patient is well-developed well-nourished male lying on stretcher not appearing to be in acute distress. [] HEENT: Normocephalic. Atraumatic. Extraocular motions are intact. Patient has moist mucous membranes. Strabismus NECK: Supple. No meningitic signs are noted. Trachea midline CHEST/LUNGS: Clear to auscultation. There is no respiratory distress noted. HEART/CARDIOVASCULAR: Regular. There is no tachycardia. There is no gallop rub or murmur. ABDOMEN: Abdomen is soft, nontender. Patient has normal bowel sounds. There is no abdominal distention. SKIN: There is no rash. There is no edema. There is no diaphoresis. NEURO: The patient is awake, alert, and oriented. The patient is cooperative. The patient has normal speech MUSCULOSKELETAL: There is no evidence of acute injury. ED Course Vital Signs 11/16/18 02:37 Temperature 98.2 F Pulse Rate 96 H Respiratory 18 Rate Blood Pressure 125/92 O2 Sat by Pulse 100 Oximetry ED Medical Decision Making - Lab Data Result diagrams: 11/16/18 03:02 11/16/18 03:02 Laboratory Tests 11/16/18 11/16/18 11/16/18 03:02 03:02 03:02 WBC 8.1 RBC 5.17 H Hgb 16.0 H Hct 46.1 H MCV 89 MCH 31 MCHC 35 H RDW 13.3 Plt Count 298 Lymph % (Auto) 16.9 [place] % (Auto) 8.6 H Eos % (Auto) 0.1 Baso % (Auto) 0.8 Lymph # 1.4 [place] # 0.7 Eos # 0.0 Baso # 0.1 Seg Neutrophils % 73.6 H Seg Neutrophils # 6.0 Sodium Potassium Chloride Carbon Dioxide Anion Gap BUN Creatinine Estimated GFR BUN/Creatinine Ratio Glucose Calcium Urine Color Urine Turbidity Urine pH Ur Specific [place] Urine Protein Urine Glucose (UA) Urine Ketones Urine Blood Urine Nitrite Urine Bilirubin Urine Urobilinogen Ur Leukocyte Esterase Urine WBC (Auto) Urine RBC (Auto) Salicylates < 0.3 L Urine Opiates Screen Urine Methadone Screen Acetaminophen < 5.0 L Ur Barbiturates Screen Ur Phencyclidine Scrn Ur Amphetamines Screen U Benzodiazepines Scrn Urine Cocaine Screen U Marijuana (THC) Screen Drugs of Abuse Note Plasma/Serum Alcohol 11/16/18 11/16/18 11/16/18 03:02 03:02 Unknown WBC RBC Hgb Hct MCV MCH MCHC RDW Plt Count Lymph % (Auto) [place] % (Auto) Eos % (Auto) Baso % (Auto) Lymph # [place] # Eos # Baso # Seg Neutrophils % Seg Neutrophils # Sodium 138 Potassium 4.9 Chloride 97.0 L Carbon Dioxide 28 Anion Gap 18 BUN 10 Creatinine 1.0 Estimated GFR > 60 BUN/Creatinine Ratio 10 Glucose 110 H Calcium 9.8 Urine Color Colorless Urine Turbidity Clear Urine pH 8.0 H Ur Specific [place] 1.004 Urine Protein <15 mg/dl Urine Glucose (UA) Neg Urine Ketones Neg Urine Blood Neg Urine Nitrite Neg Urine Bilirubin Neg Urine Urobilinogen < 2.0 Ur Leukocyte Esterase Neg Urine WBC (Auto) < 1.0 Urine RBC (Auto) 1.0 Salicylates Urine Opiates Screen Urine Methadone Screen Acetaminophen Ur Barbiturates Screen Ur Phencyclidine Scrn Ur Amphetamines Screen U Benzodiazepines Scrn Urine Cocaine Screen U Marijuana (THC) Screen Drugs of Abuse Note Plasma/Serum Alcohol < 0.01 11/16/18 Unknown WBC RBC Hgb Hct MCV MCH MCHC RDW Plt Count Lymph % (Auto) [place] % (Auto) Eos % (Auto) Baso % (Auto) Lymph # [place] # Eos # Baso # Seg Neutrophils % Seg Neutrophils # Sodium Potassium Chloride Carbon Dioxide Anion Gap BUN Creatinine Estimated GFR BUN/Creatinine Ratio Glucose Calcium Urine Color Urine Turbidity Urine pH Ur Specific [place] Urine Protein Urine Glucose (UA) Urine Ketones Urine Blood Urine Nitrite Urine Bilirubin Urine Urobilinogen Ur Leukocyte Esterase Urine WBC (Auto) Urine RBC (Auto) Salicylates Urine Opiates Screen Presumptive negative Urine Methadone Screen Presumptive negative Acetaminophen Ur Barbiturates Screen Presumptive negative Ur Phencyclidine Scrn Presumptive negative Ur Amphetamines Screen Presumptive negative U Benzodiazepines Scrn Presumptive negative Urine Cocaine Screen Presumptive positive U Marijuana (THC) Screen Presumptive positive Drugs of Abuse Note Disclamer Plasma/Serum Alcohol - Differential Diagnosis schizophrenia, homicidal ideation Critical care attestation.: If time is entered above; I have spent that time in minutes in the direct care of this critically ill patient, excluding procedure time. ED Disposition Clinical Impression: Schizophrenia, Homicidal ideation, Medical clearance for psychiatric admission Disposition: DC/TX-65 PSY HOSP/PSY UNIT Is pt being admited?: No Does the pt Need Aspirin: No Condition: Serious Referrals: HARLAN COHEN MD [Primary Care Provider] - 3-5 Days Time of Disposition: 06:12 (awaiting acceptance)
[2018-11-16] MEDS ORDERED: TYLENOL ONE (09:44)
--- NOTE | 2018-11-16 11:47 | Consultation ---
History of Present Illness - Reason for Consult Consult date: 11/16/18 Reason for consult: Mental Health Evaluation Requesting physician: BRYAN PAULINO - Chief Complaint Chief complaint: "I have issues" - History of Present Psychiatric Illness 3-year-old AA male who presented to the ER for HI's. This patient is known to me. today the patient is irritable during the assessment. He stated he wanted to kill someone from his job who owe him money. The patient was asked several times about the person he wanted to kill, he refused to ID the person. The patient got upset and started using profanity about what he may or may not do. After being belligerent, I the provider terminated the interview because of the patient's behavior. The [facility] Police was notified by me the provider reference the patient's HI's towards a coworker. Medications and Allergies Allergies Allergy/AdvReac Type Severity Reaction Status Date / Time No Known Allergies Allergy Verified 03/29/17 15:45 Home Medications Medication Instructions Recorded Confirmed Last Taken Type No Known Home Medications [No 11/08/18 11/08/18 Unknown History Reported Home Medications] Past psychiatric history - Past Medical History Past Medical History: No medical history Past Surgical History: No surgical history - past Psychiatric treatment and history psychiatric treatment history: Inpatient psy settings in the past. Denies a fam psy hx. - Social History Social history: other (Homeless) Mental Status Exam - Vital signs Last Vital Signs Temp 97.6 F 11/16/18 07:30 Pulse 88 11/16/18 07:30 Resp 18 11/16/18 09:00 BP 136/96 11/16/18 07:30 Pulse Ox 98 11/16/18 07:30 - Exam Narrative exam: MSE: Appearance: in hospital attire Behavior: poor eye contact Speech: regular rate and loud tone Mood: irritated Affect: congruent to mood Thought Process: tangential Thought Content: denies SI's Motor Activity: sitting up in the bed Cognition: A/O x3 Insight: unable to assess Judgment: poor Results Result Diagrams: 11/16/18 03:02 11/16/18 03:02 Abnormal lab results 11/16/18 11/16/18 11/16/18 Range/Units 03:02 03:02 03:02 RBC 5.17 H (3.65-5.03) M/mm3 Hgb 16.0 H (11.8-15.2) gm/dl Hct 46.1 H (35.5-45.6) % MCHC 35 H (32-34) % [place] % (Auto) 8.6 H (0.0-7.3) % Seg Neutrophils % 73.6 H (40.0-70.0) % Chloride (98-107) mmol/L Glucose (75-100) mg/dL Urine pH (5.0-7.0) Salicylates < 0.3 L (2.8-20.0) mg/dL Acetaminophen < 5.0 L (10.0-30.0) ug/mL 11/16/18 11/16/18 Range/Units 03:02 Unknown RBC (3.65-5.03) M/mm3 Hgb (11.8-15.2) gm/dl Hct (35.5-45.6) % MCHC (32-34) % [place] % (Auto) (0.0-7.3) % Seg Neutrophils % (40.0-70.0) % Chloride 97.0 L (98-107) mmol/L Glucose 110 H (75-100) mg/dL Urine pH 8.0 H (5.0-7.0) Salicylates (2.8-20.0) mg/dL Acetaminophen (10.0-30.0) ug/mL All other labs normal. Assessment and Plan Assessment and plan: Impression: Unspecified Mood DO. Substance Use DO (cocaine). Cannabis Use DO. Today the patient is irritable during the assessment. The [facility] Police interviewed the patient per his assigned nurse. DDx: Bipolar DO, Substance Induced Mood DO Recommendation/Plan: Continue 1013 and start home medication Zyprexa 5 mg PO HS for mood. Attempted to discuss possible metabolic side effects of Zyprexa with the patient. Dispo: The patient was referred to inpatient psy services. Will staff with Dr Nazia Gutierrez. .
--- NOTE | 2018-11-17 10:10 | Progress Note ---
Subjective - Reason for Consult Consult date: 11/17/18 Reason for consult: Psychiatry Follow-up - Chief Complaint Chief complaint: "I rather talk tomorrow" 43-year-old AA male who presented to the ER for HI's. This patient is known to me. Today the patient prefer to talk tomorrow. He would not answer any questions asked of him. Mental Status Exam - Vital signs Last Vital Signs Temp 97.7 F 11/17/18 07:00 Pulse 81 11/17/18 07:00 Resp 18 11/17/18 07:00 BP 112/76 11/17/18 07:00 Pulse Ox 99 11/17/18 07:00 - Exam Narrative exam: The MSE could not be completed because the patient prefer to talk tomorrow. Assessment and Plan Impression: Unspecified Mood DO. Substance Use DO (cocaine). Cannabis Use DO. Today the patient prefer to talk tomorrow. DDx: Bipolar DO, Substance Induced Mood DO Recommendation/Plan: Continue 1013 and Zyprexa 5 mg PO HS for mood. Attempted to discuss possible metabolic side effects of Zyprexa with the patient. Attempt to reassess the patient in 24 hours. Dispo: The patient was referred to inpatient psy services. Will staff with Dr Nazia Gutierrez. .
--- NOTE | 2018-11-18 10:17 | Progress Note ---
Subjective - Reason for Consult Consult date: 11/18/18 Reason for consult: Psychiatry Follow-up - Chief Complaint Chief complaint: "I need a lot of help" 43-year-old AA male who presented to the ER for HI's. This patient is known to me. Today the patient is calm and cooperative during the assessment. He stated that he want help for his substance abuse, but is "turned around" by a facility often. He stated that he self medicates with recreational drugs because he isn't getting the help he need. He stated that his SI's have "decreased" since his admission to the ER. He denies HI's and AVH's. He denies any side effects of he medications. Mental Status Exam - Vital signs Last Vital Signs Temp 98.8 F 11/18/18 02:00 Pulse 79 11/18/18 02:00 Resp 18 11/18/18 02:00 BP 102/75 11/18/18 02:00 Pulse Ox 99 11/18/18 02:00 - Exam Narrative exam: MSE: Appearance: calm, cooperative Behavior: regular eye contact Speech: regular rate and tone Mood: "okay" Affect: congruent to mood Thought Process: circumstantial Thought Content: denies HI's and AVH's Motor Activity: sitting up in the bed Cognition: A/O x3 Insight: variable to fair Judgment: variable Assessment and Plan Impression: Unspecified Mood DO. Substance Use DO (cocaine). Cannabis Use DO. Today the patient is calm and cooperative during the assessment. DDx: Bipolar DO, Substance Induced Mood DO Recommendation/Plan: Reevaluate the patient's 1013 in 24 hours. Continue Zyprexa 5 mg PO HS for mood. Discussed possible metabolic side effects of Zyprexa with the patient. Dispo: If the patient's 1013 is rescinded, he can follow up with [facility] (rehab services) or [facility] for outpatient psy services. Will staff with Dr Nazia Gutierrez. .
--- NOTE | 2018-11-19 13:34 | Progress Note ---
Subjective - Reason for Consult Consult date: 11/19/18 Reason for consult: Psyhciatry Follow-up - Chief Complaint Chief complaint: "I want dedicated intermodal truck driver help" 43-year-old AA male who presented to the ER for HI's. This patient is known to me. Today the patient is irritable during the assessment. He continue to endorse SI's. He want shelter treatment for his mental health. He was explained the transfer process to another mental health facility. He denies HI's and AVH's. No indications of side effects of his medication. Mental Status Exam - Vital signs Last Vital Signs Temp 97.8 F 11/19/18 07:30 Pulse 69 11/19/18 07:30 Resp 18 11/19/18 07:30 BP 100/65 11/19/18 07:30 Pulse Ox 99 11/19/18 07:30 - Exam Narrative exam: MSE: Appearance: in hospital attire Behavior: regular eye contact Speech: regular rate and tone Mood: irritable Affect: congruent to mood Thought Process: circumstantial Thought Content: denies HI's and AVH's Motor Activity: sitting up in the bed Cognition: A/O x3 Insight: variable Judgment: variable Assessment and Plan Impression: Unspecified Mood DO. Substance Use DO (cocaine). Cannabis Use DO. Today the patient is irritable during the assessment. The patient is possibly malingering. DDx: Bipolar DO, Substance Induced Mood DO Recommendation/Plan: Reevaluate the patient's 1013 in 24 hours. Continue Zyprexa 5 mg PO HS for mood. Discussed possible metabolic side effects of Zyprexa with the patient. Dispo: If the patient's 1013 is rescinded, he can follow up with [facility] (rehab services) or [facility] for outpatient psy services. Staffed with Dr Mika Gutierrez. .
--- NOTE | 2018-11-20 13:51 | Progress Note ---
Subjective - Reason for Consult Consult date: 11/20/18 Reason for consult: Psychiatric Follow-up Evaluation - Chief Complaint Chief complaint: " I feel okay" Patient is a 43-year-old AA male who presented to the ER for HI's. This patient is known to me. Today the patient is calm and cooperative during the assessment. Patient appears less irritable. He denies SI/HI's. He rates depression 8/10 with 10 being the worse. He continues to endorse AH's telling him to hurt others. Patient is medication compliant. No indications of side effects of his medication. Mental Status Exam - Vital signs Last Vital Signs Temp 98.3 F 11/20/18 12:59 Pulse 62 11/20/18 12:59 Resp 16 11/20/18 12:59 BP 98/62 11/20/18 12:59 Pulse Ox 99 11/20/18 12:59 - Exam Narrative exam: Mental Status Exam Appearance: calm, cooperative Behavior: regular eye contact Speech: regular rate and tone Mood: "okay"; less irritable Affect: congruent to mood Thought Process: circumstantial Thought Content: denies SI/HI's, VH's, and delusions; + endorses AH's telling him to harm others. Motor Activity: sitting up in the bed Cognition: A/O x3 Insight: variable Judgment: variable Assessment and Plan Impression: Unspecified Mood DO. Substance Use DO (cocaine). Cannabis Use DO. Today the patient is calm and cooperative during the assessment. He appears less irritable. He endorses AH's telling him to hurt others. The patient is possibly malingering. DDx: Bipolar DO, Substance Induced Mood DO Recommendation/Plan: 1. Continue 1013. Reevaluate the patient's 1013 in 24 hours. 2. Increase Zyprexa 10 mg PO HS for mood/psychosis. Discussed possible metabolic side effects of Zyprexa with the patient. Disposition: If the patient's 1013 is rescinded, he can follow up with [facility] (rehab services) or [facility] for outpatient psy services. Staffed with Dr. Mika Gutierrez.
--- NOTE | 2018-11-21 12:37 | Progress Note ---
Subjective - Reason for Consult Consult date: 11/21/18 Reason for consult: Psychiatry Follow-up - Chief Complaint Chief complaint: "What do you" Patient is a 43-year-old AA male who presented to the ER for HI's. This patient is known to me. Today the patient is irritable during the assessment. He would not answer most questions asked of him. He would not confirm or deny SI's and AH's. He did deny HI's and VH's. No indications of side effects of his me dication. Mental Status Exam - Vital signs Last Vital Signs Temp 98.7 F 11/21/18 08:41 Pulse 62 11/21/18 08:41 Resp 18 11/21/18 08:41 BP 99/67 11/21/18 08:41 Pulse Ox 100 11/21/18 08:41 - Exam Narrative exam: MSE: Appearance: in hospital attire Behavior: poor eye contact Speech: regular rate and tone Mood: irritable Affect: congruent to mood Thought Process: unable to assess Thought Content: denies HI's and VH's Motor Activity: sitting up in the bed Cognition: A/O x3 Insight: vague Judgment: unable to assess Assessment and Plan Impression: Unspecified Mood DO. Substance Use DO (cocaine). Cannabis Use DO. Today the patient is irritable during the assessment. DDx: Bipolar DO, Substance Induced Mood DO Recommendation/Plan: Continue 1013 and Zyprexa 10 mg PO HS for mood. Discussed possible metabolic side effects of Zyprexa with the patient. Dispo: The patient was accepted to [facility] for inpatient psy services pending transport time. Will staff with Dr Ramachandran.
--- NOTE | 2018-11-22 10:23 | Progress Note ---
Subjective - Reason for Consult Consult date: 11/22/18 Reason for consult: Psychiatry Follow-up - Chief Complaint Chief complaint: "I am ready to go" Patient is a 43-year-old AA male who presented to the ER for HI's. This patient is known to me. Today the patient is calm during the assessment. He refusesd to answer questions asked of him. He did state, 'I ready to go to [facility]." Several attempts was made to engage the patient, but was unsuccessful. Mental Status Exam - Vital signs Last Vital Signs Temp 98.2 F 11/22/18 02:00 Pulse 69 11/22/18 02:00 Resp 18 11/22/18 02:00 BP 114/58 11/22/18 02:00 Pulse Ox 100 11/22/18 02:00 - Exam Narrative exam: Unable to complete the MSE because the patient refuse to cooperate. Assessment and Plan Impression: Unspecified Mood DO. Substance Use DO (cocaine). Cannabis Use DO. Today the patient is irritable during the assessment. DDx: Bipolar DO, Substance Induced Mood DO Recommendation/Plan: Continue 1013 and Zyprexa 10 mg PO HS for mood. Discussed possible metabolic side effects of Zyprexa with the patient. Dispo: The patient was accepted to [facility] for inpatient psy services pending transport time. Will staff with Dr Nazia Gutierrez.
[2018-11-22 11:20] VITALS: BP 107/55
== END 2018-11-22 11:37 ==
LOC: ED 02:00 → EEVIPCON 02:00 → ED 11-22 11:37
DX: F20.9 Schizophrenia, unspecified (principal); F32.9 Major depressive disorder, single episode, unspecified; F41.9 Anxiety disorder, unspecified; F17.200 Nicotine dependence, unspecified, uncomplicated; F12.10 Cannabis abuse, uncomplicated; Z88.8 Allergy status to other drugs, medicaments and biological substances
CPT/HCPCS: 36415; 80048; 80307; 81001; 85025; 99285; G0480; 80320

== ENCOUNTER 2021-10-22 08:12 | Emergency (ER) | payer SELFPAY ==
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
[2021-10-22 10:43] LABS: Basophils % (Auto) 1.1 % (0.0-1.8); Eosinophils # (Auto) 0.1 K/mm3 (0.0-0.4); Eosinophils % (Auto) 1.9 % (0.0-4.3); Hematocrit 41.8 % (35.5-45.6); Hemoglobin 14.3 gm/dl (11.8-15.2); Lymphocytes # (Auto) 1.6 K/mm3 (1.2-5.4); Lymphocytes % (Auto) 39.8 % (13.4-35.0); Mean Corpuscular HGB Conc 34 % (32-34); Mean Corpuscular Volume 91 fl (84-94); Monocytes # (Auto) 0.5 K/mm3 (0.0-0.8); Monocytes % (Auto) 11.3 % (0.0-7.3); Platelet Count 286 K/mm3 (140-440); Red Blood Count 4.62 M/mm3 (3.65-5.03)
[2021-10-22 11:04] LABS: Alanine Aminotransferase 11 units/L (7-56); Albumin 4.7 g/dL (3.9-5); BUN/Creatinine Ratio 12; Blood Urea Nitrogen 12 mg/dL (9-20); Calcium 9.1 mg/dL (8.4-10.2); Hemolysis Index 5
[2021-10-22 12:39] VITALS: BP 112/61
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
[2021-10-22 13:03] LABS: Amphetamine Screen,Urine PRESUMPTIVE POSITIVE
[2021-10-22 13:35] LABS: Benzodiazepines Screen,Urine PRESUMPTIVE NEGATIVE; Cannabinoid Screen,Urine PRESUMPTIVE POSITIVE; Cocaine Screen,Urine PRESUMPTIVE POSITIVE; Methadone Screen,Urine PRESUMPTIVE NEGATIVE; Opiate Screen,Urine PRESUMPTIVE NEGATIVE
== END 2021-10-22 14:54 | disposition home or self-care (01) ==
LOC: ED 08:12
DX: F43.21 Adjustment disorder with depressed mood (principal); F41.8 Other specified anxiety disorders; Z98.890 Other specified postprocedural states; F17.200 Nicotine dependence, unspecified, uncomplicated; F20.9 Schizophrenia, unspecified; Z79.899 Other long term (current) drug therapy
CPT/HCPCS: 36415; 80053; 80307; 80320; 85025; 99283; G0480